=== PATIENT | male | born 1975 | race Caucasian/White ===

== ENCOUNTER 2016-06-18 18:54 | Inpatient (IN) | payer MEDICARE, OTHER ==
[~2016-06-18] VITALS: Ht 157.5 cm; Wt 63.5 kg
[2016-06-18] MEDS ORDERED: ONDANSETRON 4 MG INJ IV STA (19:09)
[2016-06-18] MEDS ORDERED: SOD CHLORIDE 0.9% 1,000 ML IV STA (19:09)
[2016-06-18] MEDS ORDERED: HYDROmorphONE 1 MG/ML SYG IV STA ×2 (19:09→21:36)
[2016-06-18] MEDS ORDERED: ADAL10SY SQ (19:16)
[2016-06-18] MEDS ORDERED: LORAZEPAM 2 MG INJ ONE (19:17)
[2016-06-18] MEDS ORDERED: LORAZEPAM 2 MG INJ IM STA (19:27)
[2016-06-18] MEDS ORDERED: PHENYTOIN 1,250 MG in SOD CHLORIDE 0.9% 150 ML IV ONE (19:30)
[2016-06-18 20:02] LABS: ADD SCAN DIFF NO
[2016-06-18 20:06] LABS: ABNORMAL IP MESSAGE 1; HEMATOCRIT 44.1 % (42.0-52.0); HEMOGLOBIN 13.7 g/dl (14.0-18.0); MEAN CORPUSCULAR HEMOGLOBIN 27.5 pg (29.0-33.0); MEAN CORPUSCULAR HGB CONC 31.1 g/dl (32.0-37.0); MEAN CORPUSCULAR VOLUME 88.4 fl (82.0-101.0); MEAN PLATELET VOLUME 10.4 fl (7.4-10.4); PLATELET COUNT 314 10^3/UL (140-415); RED BLOOD COUNT 4.99 10^6/ul (4.70-6.10); RED CELL DISTRIBUTION WIDTH 15.9 % (11.5-14.5); WHITE BLOOD COUNT 32.3 10^3/ul (4.8-10.8)
[2016-06-18 20:14] LABS: ALBUMIN 4.3 g/dl (3.3-4.9); POTASSIUM 3.4 mmol/L (3.5-5.1)
[2016-06-18 20:16] LABS: CREATININE 1.12 mg/dl (0.61-1.24)
[2016-06-18 20:17] LABS: ALBUMIN/GLOBULIN RATIO 1.38; BILIRUBIN,INDIRECT 0.5 mg/dl (0-1.1); BILIRUBIN,TOTAL 0.5 mg/dl (0.2-1.3); CALCIUM 9.3 mg/dl (8.4-10.2); TOTAL PROTEIN 7.4 g/dl (6.1-8.1)
--- NOTE | 2016-06-18 20:31 | RADRPT ---
PROCEDURE: XR Chest. CLINICAL INDICATION: Shortness of breath. Seizure. TECHNIQUE: Single frontal view. COMPARISON: None. FINDINGS: The lungs are clear. The heart size is normal. There is no pleural effusion. There is no pneumothorax. IMPRESSION: 1. Normal chest radiograph. RPTAT: QQ .Perry Bolaños MD, MD Date Time Electronically viewed and signed by .Perry Bolaños MD, on 06/18/2016 20:30 .R/
[2016-06-18 20:41] LABS: LYMPHOCYTES # 6.5 10^3/ul (0.8-2.9); NEUTROPHIL # 24.9 10^3/ul (1.6-7.5)
[2016-06-18] MEDS ORDERED: PIPER-TAZO 3.375 GM IV (PMX) 100 ML IVPB STA (20:41)
[2016-06-18] MEDS ORDERED: SODIUM CHLORIDE 0.9% 1L BAG IV* STA (20:41)
[2016-06-18 20:43] LABS: PLATELET ESTIMATE PLT APPEAR ADEQUATE
[2016-06-18] MEDS ORDERED: ADAL40PE SQ (20:48)
--- NOTE | 2016-06-18 20:48 | RADRPT ---
PROCEDURE: CT Head without. CLINICAL INDICATION: Seizure. TECHNIQUE: The study was performed utilizing a multi-slice, multidetector CT scanner. Direct spira l 1 mm axial sections were obtained through the head without the use of intravenous contrast materia l. 1 or more of the following dose reduction techniques were utilized: Automated exposure control, adjustment of the mA and/or kV according to patient's size, iterative reconstruction technique. Co collin and sagittal reformations were obtained. The images were reviewed on a PACS workstation. RADIATION DOSE: CTDIvol: 43.8 mGyDLP: 720.2 mGy-cm COMPARISON: No prior studies are available for comparison. FINDINGS: There is no intracranial hemorrhage, extra-axial fluid collection, mass lesion, midline shift or hyd rocephalus. The ventricles, sulci and cisterns are within normal limits. The white matter is unrem arkable. The hickey-white matter differentiation is preserved. The basal cisterns are patent. There is a probable prominent perivascular space in the left sub insular white matter. The midline struc tures are intact. The orbits, calvarium and extracranial soft tissues are normal in appearance. The visualized paranasal sinuses, mastoid air cells and middle ear cavities are normally aerated. IMPRESSION: 1. No acute intracranial abnormality. No intracranial hemorrhage, extra-axial fluid collection, ma ss lesion or hydrocephalous. RPTAT: HGAS .Jamar Burleson MD, MD Date Time Electronically viewed and signed by .Jamar Burleson MD, MD on 06/18/2016 20:48 .S/
--- NOTE | 2016-06-18 20:55 | RADRPT ---
PROCEDURE: CT Abdomen and Pelvis without contrast. CLINICAL INDICATION: Abdominal and pelvic pain. History of Crohn disease. TECHNIQUE: CT scan of the abdomen and pelvis without contrast was performed. Coronal and sagittal reformatted images were obtained from the axial source images. Images were reviewed on a high-resolu [employer] PACS workstation. Total exam DLP is 672.47 mGy-cm. CTDIvol is 12.34 mGy. One or more of the f ollowing dose reduction techniques were used: Automated exposure control, adjustment of the mA and/o r kV according to patient size, use of iterative reconstruction technique. COMPARISON: None. FINDINGS: There is mild atelectasis at both lung bases posteriorly. The lung bases are otherwise normal. The re is no pleural effusion or pericardial effusion. The heart size is normal. The liver is normal in size and attenuation. There is no focal hepatic lesion. The gallbladder and bile ducts are normal. The spleen is normal in size. There is no focal splenic lesion. Both adrenals are normal with no enlargement or mass. The pancreas is unremarkable with no mass or evidence of pancreatitis. There is no renal hydronephrosis or calculus. There is a low attenuation mass in the mid left kidne y posteriorly measuring 3.8 cm with Hounsfield units measuring 29 indicating it may be cystic or nitin id. A benign 1.5 cm cyst is present superiorly in the left kidney. There is no other renal mass. The abdominal aorta is not dilated. There is calcification in the aorta consistent with atheroscler osis. There is no retroperitoneal lymphadenopathy or mass. There is no pelvic lymphadenopathy or mass. The bladder and distal ureters are normal. The pelvis is partially obscured due to artifact related to the bilateral hip arthroplasties. There has been prior right hemicolectomy. There is thickening of the wall of the transverse colon d istally at the region of the anastomoses. The bowel and mesentery are otherwise normal. There is no free fluid or free gas. There are bilateral total hip arthroplasties. There is a plate and screws in the right iliac wing i nferiorly. The osseous structures are otherwise grossly normal. IMPRESSION: 1. Mild atelectasis at the lung bases posteriorly. 2. Low attenuation mass in the mid left kidney which is probably a cyst measuring 3.8 cm. However, correlation with ultrasound is advised. 3. Small cyst superiorly in the left kidney measuring 1.5 cm. 4. Prior right hemicolectomy. Thickening of the wall of the transverse colon at the site of the an astomosis. This may indicate recurrent Crohn disease. 5. Bilateral total hip arthroplasties. 6. Otherwise unremarkable study. RPTAT: QQ .Perry Bolaños MD, Date Time Electronically viewed and signed by .Perry Bolaños MD, on 06/18/2016 20:55 .R/
[2016-06-18] MEDS ORDERED: DIPHENHYDRAMINE 50 MG INJ IV ONE (21:00)
[2016-06-18] MEDS ORDERED: DEXTROSE IV ONE (21:39)
[2016-06-18] MEDS ORDERED: POTASSIUM CHLORIDE IV ONE (21:39)
[2016-06-18 22:00] VITALS: TEMP 97.8
[2016-06-18] MEDS ORDERED: ONDANSETRON 4 MG INJ IV PRN (22:00)
[2016-06-18] MEDS: HYDROmorphONE 1 MG/ML SYG IV PRN (22:49)
--- NOTE | 2016-06-18 23:11 | ERA ---
ER Documentation Chief Complaint Date/Time DATE: 06/18/16 TIME: 22:55 Chief Complaint back pain associated w/ chron's ds flare-up HPI 40-year-old male with a history of Crohn's disease on Humira and chronic steroids brought in by ambulance after having what looked like a seizure at home. Currently the patient is able to give his own history and is back to his baseline mental status. He states that today he was feeling some low back pain which then radiated into his abdomen. After that he does not remember what happened. Reportedly, per his mother, he became stiff and dropped to the floor and started having seizure-like activity. There is no urinary incontinence or tongue biting. He denies any recent fevers, chills, nausea, vomiting, diarrhea , hematochezia, or melena. He denies any drug use. He denies any neck pain or neck stiffness or any headaches. However he states his low back hurts and he usually does not have low back pain. He describes as a sharp, stabbing pain in his whole lower back, worse with movement, 10 out of 10. Better when he does not move. He also has lower abdominal pain that is cramping, constant, 10 out of 10. No dysuria, vomiting, hematemesis. ROS All systems reviewed and are negative except as per history of present illness. Medications Home Meds Reported Medications Adalimumab (Humira) 40 Mg/0.8 Ml Pen.ij.kit, 40 MG SQ [id number] 06/18/16 Discontinued Reported Medications Adalimumab (Humira) Unknown Strength Syringekit, MG SQ [id number], KIT 06/18/16 Allergies Allergies: Coded Allergies: acetaminophen (Verified Allergy, Unknown, rash, 06/18/16) hydrocodone (Verified Allergy, Unknown, rash, 06/18/16) morphine (Verified Allergy, Unknown, rash, 06/18/16) PMhx/Soc History of Surgery: Yes (Partial colectomy, bilateral hip arthroplasties, bilateral knee arthroplasty) Hx Miscellaneous Medical Probl: Yes (Crohn's disease) Hx Alcohol Use: No Hx Substance Use: No Smoking Status: Current every day smoker (10 cigarettes a day) FmHx Family History: No diabetes Physical Exam Vitals Vital Signs Date Time Temp Pulse Resp B/P Pulse Ox O2 Delivery O2 Flow Rate FiO2 06/18/16 19:00 Nasal Cannula 2 06/18/16 19:00 98.1 92 28 142/102 98 Room Air 06/18/16 18:57 98.1 95 20 141/100 99 Physical Exam Const: Ill-appearing, no significant distress when laying still and not moving Head: Atraumatic Eyes: Normal Conjunctiva. PERRLA, EOMI ENT: Dry mucous membranes Neck: Full range of motion. No lymphadenopathy. No meningismus. Resp: Clear to auscultation bilaterally Cardio: Regular rate and rhythm, no murmurs Abd: Soft, diffusely tender without rebound or guarding, non distended. Normal bowel sounds Skin: No petechiae or rashes Back: Lower thoracic and lumbar midline and paraspinal muscle tenderness to light palpation Ext: No cyanosis, or edema. 2+ distal pulses. Neur: Awake and alert and oriented 3, cranial nerves intact, strength and sensations intact in all 4 extremities, unable to test gait secondary to severe back pain Psych: Depressed mood and flat affect Result Diagram: 06/18/16192606/18/161926 Results 24 hrs Laboratory Tests Test 06/18/16 19:27 06/18/16 21:13 White Blood Count 32.310^3/ul Red Blood Count 4.9910^6/ul Hemoglobin 13.7g/dl Hematocrit 44.1% Mean Corpuscular Volume 88.4fl Mean Corpuscular Hemoglobin 27.5pg Mean Corpuscular Hemoglobin Concent 31.1g/dl Red Cell Distribution Width 15.9% Platelet Count 69119^3/UL Mean Platelet Volume 10.4fl Neutrophils % 77.0% Lymphocytes % 20.0% Monocytes % 3.0% Neutrophils # 24.910^3/ul Lymphocytes # 6.510^3/ul Monocytes # 1.010^3/ul Platelet Estimate PLT APPEAR ADEQUATE Macrocytosis OCCASIONAL Erythrocyte Sedimentation Rate 4mm/Hr Sodium Level 142mmol/L Potassium Level 3.4mmol/L Chloride Level 106mmol/L Carbon Dioxide Level 15mmol/L Anion Gap 24 Blood Urea Nitrogen 7mg/dl Creatinine 1.12mg/dl Glucose Level 87mg/dl Calcium Level 9.3mg/dl Total Bilirubin 0.5mg/dl Direct Bilirubin 0.00mg/dl Indirect Bilirubin 0.5mg/dl Aspartate Amino Transf (AST/SGOT) 41IU/L Alanine Aminotransferase (ALT/SGPT) 40IU/L Alkaline Phosphatase 81IU/L Troponin I < 0.012ng/ml Total Protein 7.4g/dl Albumin 4.3g/dl Globulin 3.10g/dl Albumin/Globulin Ratio 1.38 Lipase 51U/L Lactic Acid Level 2.2mmol/L Creatine Kinase 154IU/L Current Medications Medications (Trade) Dose Ordered Sig/Preston Route PRN Reason Start Time Stop Time Status Last Admin Dose Admin Sodium Chloride (NS) 1,000 ml @ 1,000 mls/hr Q1H STAT IV 06/18/16 19:09 06/18/16 20:08 DC 06/18/16 19:53 Hydromorphone HCl (Dilaudid) 1 mg ONCE STAT IV 06/18/16 19:09 06/18/16 19:11 DC 06/18/16 19:52 Ondansetron HCl (Zofran Inj) 4 mg ONCE STAT IV 06/18/16 19:09 06/18/16 19:11 DC 06/18/16 19:51 Lorazepam 2 mg 2 mg STK-MED ONCE .ROUTE 06/18/16 19:17 06/18/16 19:18 DC Phenytoin/Sodium Chloride (Dilantin/NS) 175 ml @ 175 mls/hr ONCE ONCE IV 06/18/16 19:30 06/18/16 20:29 DC 06/18/16 21:12 Lorazepam (Ativan) 2 mg ONCE STAT IM 06/18/16 19:27 06/18/16 19:29 DC 06/18/16 19:51 Sodium Chloride 1110 ml 1,110 ml BOLUS OVER 2 HOURS STAT IV* 06/18/16 20:41 06/18/16 20:46 DC 06/18/16 22:00 Piperacillin Sod/ Tazobactam Sod (Zosyn 3.375gm/ 100 ml (Pmx)) 100 ml @ 200 mls/hr ONCE STAT IVPB 06/18/16 20:41 06/18/16 21:10 DC 06/18/16 22:27 Diphenhydramine HCl (Benadryl) 25 mg ONCE ONCE IV 06/18/16 21:00 06/18/16 21:01 DC 06/18/16 21:12 Hydromorphone HCl 1 mg 1 mg ONCE STAT IV 06/18/16 21:36 06/18/16 21:37 DC 06/18/16 21:39 Potassium Chloride/Dextrose (D5W + KCl 40 Meq) 1,000 ml @ 250 mls/hr Q4H ONCE IV 06/18/16 21:39 06/19/16 01:38 Ondansetron HCl (Zofran Inj) 4 mg ER BRIDGE PRN IV NAUSEA AND/OR VOMITING 06/18/16 22:00 06/19/16 21:59 Hydromorphone HCl (Dilaudid) 1 mg Q2 PRN IV PAIN LEVEL 7-10 06/18/16 22:00 06/18/16 22:49 Procedures/MDM EMERGENT LABS AND DIAGNOSTIC STUDIES: Lab Results above were reviewed and interpreted by me. CBC shows leukocytosis CMP shows borderline hypokalemia, low CO2 and an elevated anion gap Lactate is 2.2 CK is within normal limits Troponins within normal limits Urinalysis ordered but not collected 12-lead EKG was interpreted by Joon Owens MD: Sinus tachycardia with ventricular rate of 106 beats per minute Normal axis Normal intervals No acute ST or T wave changes suggestive of acute ischemia or STEMI. Radiology Results as interpreted by Radiology below were reviewed by Kevin Owens MD: Chest x-ray: No acute abnormality CT brain: No abnormalities CT abdomen and pelvis: IMPRESSION: 1. Mild atelectasis at the lung bases posteriorly. 2. Low attenuation mass in the mid left kidney which is probably a cyst measuring 3.8 cm. However, correlation with ultrasound is advised. 3. Small cyst superiorly in the left kidney measuring 1.5 cm. 4. Prior right hemicolectomy. Thickening of the wall of the transverse colon at the site of the anastomosis. This may indicate recurrent Crohn disease. 5. Bilateral total hip arthroplasties. 6. Otherwise unremarkable study. RPTAT: QQ .Perry Bolaños MD, MD Date Time Electronically viewed and signed by .Perry Bolaños MD, MD on 06/18/2016 20:55 Initial Nursing notes reviewed. Previous Medical Records requested via the Electronic Health Record. EMERGENCY DEPARTMENT COURSE / MEDICAL DECISION MAKING: Patient is presenting with new onset seizures and severe low back and abdominal pain. His pain is likely secondary to his Crohn's exacerbation, however he has never had back pain like this before. I am concerned that after the fall, he might have had some trauma to his back. He is neurologically intact. I do not suspect aortic dissection. There is no evidence of retroperitoneal hemorrhage. CT does show evidence of possible Crohn's exacerbation, however his ESR is within normal limits. He has an elevated anion gap with increased lactate, however I do not believe this is secondary to sepsis, and is most likely secondary to his seizures. Despite this, given his leukocytosis and immunosuppression, blood cultures were sent and IV broad-spectrum antibiotics were given. Patient actually had a seizure while in the ED, with some hypoxia and perioral cyanosis. This lasted for about 30 seconds. He was treated with Ativan 2 mg IV. His labs were collected after this seizure episode. He was loaded with IV Dilantin. CT head did not show any acute intracranial abnormalities. 30 cc/kg of IV fluids was given. His labs were notable for mild hypokalemia. I have a low suspicion for meningitis or encephalitis at this time. The etiology of the new onset seizures is unknown. However he will need further inpatient workup. Dilaudid was given in multiple doses for his back pain and abdominal pain with some relief. CT of the thoracic lumbar spine were ordered to evaluate for possible spinal injury related to his seizure and are pending. I have a low suspicion for spinal abscess, however I cannot rule this out as the patient is immunosuppressed. I will defer any further workup to the inpatient team. I was told that the patient had [employer] insurance. I spoke with [facility] and they accepted the patient for transfer. However I later spoke with the patient he stated that he had canceled his insurance with [employer] and the last day was yesterday. He now has many many. So the patient was admitted to the hospitalist. Critical Care Time: 30 minutes Treatments/Evaluations: Close monitoring and treatment of unstable vital signs, cardiorespiratory, and neurologic status, while maintaining tight balance of fluid, respiratory, and cardiac interventions. This time includes discussing the case with the patient and the patients family. This time does not include all procedures stated elsewhere in this record. This time also includes reviewing old records, labs and radiological studies. This time includes examining and re-examining the patient. Additionally, this time also includes arranging care with admitting and consulting physicians. Accepting Care Team: Current data and ongoing care discussed. Time: Time of admission Primary Provider: Shawn Consulting: none Outstanding Data: none Departure Diagnosis: Primary Impression: New onset seizure Additional Impressions: Low back pain Qualified Code: M54.5 - Acute bilateral low back pain without sciatica Exacerbation of Crohn's disease Qualified Code: K50.90 - Exacerbation of Crohn's disease, without complications Condition: Serious ALEXSANDER OWENS MD Jun 18, 2016 23:07
[2016-06-18 23:17] LABS: ADD UMIC YES; URINE BILIRUBIN (Dip) NEGATIVE (NEGATIVE); URINE BLOOD (Dip) 3+ (NEGATIVE); URINE COLOR LT. YELLOW (YELLOW); URINE GLUCOSE (Dip) NEGATIVE (NEGATIVE); URINE KETONES (Dip) NEGATIVE (NEGATIVE); URINE LEUKOCYTE ESTERASE (Dip) NEGATIVE (NEGATIVE); URINE NITRITE (Dip) NEGATIVE (NEGATIVE); URINE TOTAL PROTEIN (Dip) NEGATIVE (NEGATIVE); URINE UROBILINOGEN (Dip) 0.2 E.U./dL (0.1-1.0)
[2016-06-18 23:32] LABS: BACTERIA,URINE FEW; SQUAMOUS EPITHELIAL CELL,UR FEW
[2016-06-18 23:45] LABS: BARBITURATES Negative (NEGATIVE); BENZODIAZEPINES Negative (NEGATIVE); CANNABINOIDS Negative (NEGATIVE); COCAINE Positive (NEGATIVE); OPIATES Positive (NEGATIVE)
--- NOTE | 2016-06-18 23:46 | RADRPT ---
PROCEDURE: CT thoracic spine without contrast. CLINICAL INDICATION: Trauma, severe back pain. TECHNIQUE: A CT of the thoracic spine was performed without intravenous contrast. Coronal and sag ittal reformats were generated. CTDIvol: 24.77 mGy. DLP: 1157.55 mGy-cm. One or more of the following dose reduction techniques were used: - Automated exposure control. - Adjustment of the mA and/or kV according to patient size. - Use of iterative reconstruction technique. COMPARISON: None. FINDINGS: There is a normal thoracic kyphosis. No spondylolisthesis is seen. There is a very mild acute appearing T2 compression fracture . A very mild acute appearing T3 burst fracture is noted, with subtle irregularity of the posterior T2 vertebral body but no significant r etropulsion. There is also a very mild acute appearing T12 burst fracture, with subtle irregularity the posterior T12 vertebral body but no significant retropulsion. There is no significant degenerative change. There are mild dependent atelectatic changes in the lungs. IMPRESSION: 1. Very mild acute appearing T2 compression fracture. 2. Very mild acute appearing T3 and T12 burst fractures, with subtle irregularity of the posterior vertebral bodies at these levels but no significant retropulsion. RPTAT: HTAR .Herve Driver MD, Date Time Electronically viewed and signed by .Herve Driver MD, on 06/18/2016 23:46 .R/
--- NOTE | 2016-06-18 23:52 | RADRPT ---
PROCEDURE: CT lumbar spine without contrast CLINICAL INDICATION: Back pain. TECHNIQUE: A CT scan of the lumbar spine was performed without intravenous contrast. Coronal and s agittal reformatted images were generated. CTDIvol: 23.25 mGy. DLP: 771.89 mGy-cm. One or more of the following dose reduction techniques were used: - Automated exposure control. - Adjustment of the mA and/or kV according to patient size. - Use of iterative reconstruction technique. COMPARISON: None. FINDINGS: The lumbar lordosis is preserved without spondylolisthesis. There is transitional anatomy of the lum bosacral junction with right hemisacralization of L5. Bone mineralization is normal and there is no suspicious osseous lesion. The vertebral body heights are maintained. No fracture or subluxation i s identified. There is a moderate Schmorl's node along the superior L1 endplate. There is mild spinal canal stenosis at L2-L3 and L3-L4 due to minimal disk bulging. At L4-L5, disk b ulging leads to moderate spinal canal stenosis and narrowing of the left lateral recess, with possib le mass effect on the traversing left L5 nerve root. There is moderate neural foraminal narrowing at L4-L5 due to a small foraminal disk protrusion. Mil d bilateral neural foraminal narrowing is noted at L5-S1 due to endplate osteophytosis. The patient is status post right hip arthroplasty. There are minimal arterial calcifications. IMPRESSION: 1. No lumbar spine fracture or subluxation. 2. Transitional anatomy of the lumbosacral junction with right hemisacralization of L5. 3. Mild spinal canal stenosis L2-L3 and L3-L4. At L4-L5, there is moderate spinal canal stenosis a nd narrowing of the left lateral recess, with possible mass effect on the traversing left L5 nerve r oot. 4. Right hip arthroplasty. RPTAT: HTAR .Herve Driver MD, Date Time Electronically viewed and signed by .Herve Driver MD, on 06/18/2016 23:52 .R/
[2016-06-19] VITALS (12 sets, daily range): BP systolic 119–125; BP diastolic 72–89; PULSE 83–109; RESP 17–19; Ht 157.5 cm; Wt 63.5 kg
[2016-06-19] MEDS ORDERED: POTASSIUM CHLORIDE 20 MEQ in SOD CHLORIDE 0.9% 100 ML IVPB ONE (01:30)
[2016-06-19] MEDS ORDERED: ONDANSETRON 4 MG INJ IV PRN (01:30)
[2016-06-19] MEDS: DEXTROSE 5%-0.45% NACL 1,000 ML IV SCH ×3 (02:01→21:30)
[2016-06-19] MEDS: DIPHENHYDRAMINE 50 MG INJ IV PRN ×4 (02:01→20:44)
[2016-06-19] MEDS: HYDROmorphONE 1 MG/ML SYG IV PRN ×8 (02:02→20:44)
[2016-06-19] MEDS ORDERED: VANCOMYCIN IV PER PHARMACY XX SCH (07:30)
[2016-06-19] MEDS: CEFEPIME 1GM/50 ML (PMX) 50 ML IVPB SCH ×2 (08:45→20:43)
[2016-06-19] MEDS ORDERED: METHYLPREDNISOLONE 125 MG INJ IV ONE (09:00)
[2016-06-19] MEDS ORDERED: METHYLPREDNISOLONE 125 MG INJ IV SCH (09:00)
[2016-06-19] MEDS ORDERED: VANCOMYCIN 1.25 GM in SOD CHLORIDE 0.9% 250 ML IVPB SCH (09:00)
--- NOTE | 2016-06-19 10:04 | HP ---
DATE OF ADMISSION: 06/18/2016 CHIEF COMPLAINT: Seizure. HISTORY OF PRESENT ILLNESS: The patient is a 40-year-old male with a history of Crohn's disease and left partial hemicolectomy who presented to the emergency department after he had new onset seizure -like activity. The patient stated that he had sudden onset of abdominal pain and back pain and the next thing he knows he was surrounded by family and EMS. Reportedly, the patient had generalized b toshia tremor consistent with what appears to be seizure. When he was presented to the ER, reportedly he also had 1 episode of seizure. The patient stated that he has had back pain occasionally but nev er like the kind of pain that he felt yesterday. In the ER, he was found to have a WBC of 32,000. His bicarbonate is 15. CT of the head was negativ e. CT abdomen and pelvis shows thickening of the transverse colon, likely secondary to his Crohn's. Lumbar CT shows moderate spinal stenosis. Thoracic CT shows acute appearing T2 fracture and burst fracture in T3 and T12. The patient was given Ativan and Dilantin while here in the ER. REVIEW OF SYSTEMS: A 12-point review was performed and negative except what is mentioned in HPI. PAST MEDICAL HISTORY: As per HPI. PAST SURGICAL HISTORY: As per HPI. ALLERGIES: 1. TYLENOL. 2. HYDROCODONE. 3. MORPHINE. HOME MEDICATIONS: Humira. PHYSICAL EXAMINATION: VITAL SIGNS: Blood pressure 131/100, heart rate 104, respiratory rate 22, temperature 97.8, oxygen saturation 97% on 2 liters. GENERAL: The patient lying in bed in no acute distress. He is answering questions appropriately. HEENT: No obvious head deformity. Pupils reactive to light. Extraocular muscles intact. CARDIOVASCULAR: Tachycardic with regular rhythm. LUNGS: Clear anteriorly. ABDOMEN: Soft. There is minimal discomfort to deep palpation diffusely. There is sweating noted d uring abdominal examination. There are positive bowel sounds. EXTREMITIES: No edema. BACK: Exam elicited some pain, mainly in the lumbar area, while the patient was lying on his side. LABORATORY DATA: WBC 32, hemoglobin 13.7. Potassium 3.4, bicarbonate 15, anion gap 24. Otherwise, CBC and CMP within acceptable range. IMAGING: Brain CT, abdominal CT, lumbar and thoracic spine CT with results as mentioned in the HPI. Chest x-ray shows clear lungs with no effusion, no pneumothorax. IMPRESSION: 1. New onset seizure. 2. Acute on chronic back pain. 3. History of Crohn's disease. 4. Anion gap metabolic acidosis. 5. Systemic inflammatory response syndrome, as evidenced by leukocytosis and tachycardia, likely se condary to inflammatory reaction. PLAN: He will be started on Keppra, and Ativan will be provided as needed for seizure. We will prabha ce a neurology consult. Head CT, as mentioned in HPI, was negative. We will obtain MRI of the brai n for further evaluation. He will be provided pain medication as needed for his back pain. He will have physical therapy prior to discharge. Given presentation of SIRS, he will be placed on antibio tic, and we will follow up culture results including stool studies. We will consider infectious dis ease consult. He will be continued with this medication for Crohn's. Actually, his leukocytosis co uld be a manifestation of his Crohn's treatment which also includes steroid. Further workup and management per clinical course. Dictated By: TRACI MENSAH/GEOFF Conf#: [id number] DID#: [id number]
[2016-06-19 10:42] LABS: ADD SCAN DIFF NO
[2016-06-19 10:46] LABS: BASOPHILS % 0.2 % (0.0-2.0); EOSINOPHILS # 0.1 10^3/ul (0.0-0.5); EOSINOPHILS % 0.6 % (0.0-7.0); HEMATOCRIT 42.9 % (42.0-52.0); HEMOGLOBIN 13.8 g/dl (14.0-18.0); LYMPHOCYTES % 5.6 % (15.0-51.0); MEAN CORPUSCULAR HEMOGLOBIN 27.3 pg (29.0-33.0); MEAN CORPUSCULAR HGB CONC 32.2 g/dl (32.0-37.0); MEAN CORPUSCULAR VOLUME 84.8 fl (82.0-101.0); MEAN PLATELET VOLUME 9.9 fl (7.4-10.4); MONOCYTE # 0.4 10^3/ul (0.3-0.9); MONOCYTES % 2.3 % (0.0-11.0); NEUTROPHIL # 16.4 10^3/ul (1.6-7.5); NEUTROPHILS % 90.7 % (39.0-77.0); PLATELET COUNT 277 10^3/UL (140-415); RED BLOOD COUNT 5.06 10^6/ul (4.70-6.10); RED CELL DISTRIBUTION WIDTH 16.2 % (11.5-14.5); WHITE BLOOD COUNT 18.1 10^3/ul (4.8-10.8)
[2016-06-19 11:04] LABS: ALBUMIN 3.9 g/dl (3.3-4.9); POTASSIUM 3.1 mmol/L (3.5-5.1)
[2016-06-19 11:06] LABS: CREATININE 0.79 mg/dl (0.61-1.24)
[2016-06-19 11:07] LABS: ALBUMIN/GLOBULIN RATIO 1.25; CALCIUM 7.8 mg/dl (8.4-10.2)
[2016-06-19] MEDS: LEVETIRACETAM 500 MG TAB PO SCH ×2 (11:16→20:44)
[2016-06-19] MEDS: [UNRECOGNIZED DRUG - REMARK] XX SCH ×2 (12:00→20:00)
[2016-06-19] MEDS ORDERED: HYDROmorphONE 1 MG/ML SYG IV PRN (14:00)
[2016-06-19] MEDS: FAMOTIDINE 20 MG INJ IV SCH (14:25)
--- NOTE | 2016-06-19 15:27 | PN ---
DATE: 06/19/2016 SUBJECTIVE: No acute events overnight. The patient presently speaking to neurology team. OBJECTIVE: VITAL SIGNS: T-max 99.1, pulse 97 to 108, respirations 18, blood pressure is 125/87, saturating 97% on room air. PHYSICAL EXAMINATION: GENERAL: The patient is lying in bed, no acute distress. HEENT: Pupils equal, round, reactive to light. Extraocular muscles intact. NECK: Supple, no thyromegaly. LUNGS: Clear to auscultation bilaterally. CARDIOVASCULAR: S1, S2 heard. No rubs or gallops. ABDOMEN: Mild tenderness to palpation on deep palpation, but no rebound or guarding. Normal bowel sounds. MUSCULOSKELETAL: No lower extremity edema bilaterally. NEUROLOGIC: No focal deficits. LABORATORY DATA: WBC 18, hemoglobin 13.8, hematocrit 42.9, platelets of 277. Sodium 138, potassium 3.0, chloride 107, CO2 23, BUN of 11, creatinine 0.79, glucose 132. LFTs are normal. Drug screen shows positive opiates and positive cocaine. UA shows 3+ hemoglobin, negative nitrites, negative le ukocyte esterase. Head CT showed no acute intracranial abnormalities. Again, CT abdomen and pelvis results did show mild atelectasis at lung bases posteriorly, low attenu ation mass in the mid left kidney and probably a cyst measuring 2.5 cm, however, correlation with [facility] was advised. Small cyst superiorly in the left kidney measuring 1.5 cm. Prior right hemic olectomy, thickening of the wall of the transverse colon at the site of anastomosis may indicate rec urrent Crohn's disease, bilateral total hip arthroplasties, otherwise unremarkable. Again, his CT scan of the L-spine did show mild central canal stenosis L2-L3 and L3-L4 and L4-L5. T here is moderate spinal canal stenosis and narrowing of the left lateral recess with possible mass e ffect on the transverse left L5 nerve root. The T-spine CAT scan showed very mild acute appearing T2 compression fracture, very mild acute appea ring T3 and T12 burst fractures with subtle irregularity of the posterior vertebral bodies at these levels, but no significant retropulsion. ASSESSMENT AND PLAN: A 40-year-old male coming in with history of Crohn's disease, partial left migdalia colectomy and chronic low back pain who came in with new onset seizures. 1. No evidence of seizures. Again, continue Keppra, monitor for signs of seizure activity. Will g et an as well. MRI of the brain is pending as well. Follow up neurology recommendations. 2. History of Crohn's disease. Patient did come in with elevated white blood cell count as well. He is on Humira for that. White count has improved but is still elevated. Follow up culture result s. UA was negative. Continue to monitor for now. No signs of any fevers. If worsens, consider ID consult at that time. Continue Humira for Crohn's. 3. Systemic inflammatory response syndrome, again secondary to the tachycardia and leukocytosis. A gain, these are improving. Continue fluids, monitor labs in the morning. He is also on vancomycin and cefepime antibiotics. 4. Gastrointestinal prophylaxis. Add H2 lyla. 5. Deep venous thrombosis prophylaxis, sequential compression devices. Dictated By: GIRMA LAND/GEOFF Conf#: [id number] DID#: [id number] CC: TRACI SALMERON MD;*EndCC*
--- NOTE | 2016-06-19 15:51 | CONS ---
DATE OF ADMISSION: 06/18/2016 DATE OF CONSULTATION: 06/19/2016 TYPE OF CONSULTATION: Neurology. Thank you, Dr. Escobar, for your kind referral for evaluation of seizure. HISTORY OF PRESENT ILLNESS: The patient is a 40-year-old gentleman with a past medical history of Crohn disease who had a seizure at home. He has no history of seizures. He has history of Crohn's disease and a left partial hemicolectomy. He stated that he was in his room in bed feeding okay and was not complaining of any problems. That was the last thing he states he remembers. The next thing was already seeing police and firemen at home after the seizure. He states that his family heard the sound of a fall and he was found on the floor posterior and having seizure activity. After the event, he was somewhat confused. According to ER note, he had sudden onset of abdominal pain and then the next thing he remembered was being surrounded by family and the paramedics, though now to me he denies any pain prior to his seizure. Following the seizure, he was complaining of low back and thoracic spinal pain. He had a CAT scan of the head done which shows no acute abnormality. Chest x- ray, normal. Abdominal and pelvic CT shows status post right hemicolectomy with thickening of the wall of the transverse colon in the site of anastomosis, bilateral hip arthroplasties. Lumbar spinal CAT scan shows no fractures or subluxation, but mild spinal canal stenosis L2-L3, L3-L4. At the L4-5 level, there is a moderate spinal canal stenosis and narrowing of the left lateral recess, possible mass effect on the traversing left L5 root. Thoracic spine CAT scan shows very mild acute appearing T2 compression fracture, as well as T3 and T12 burst fractures with subtle irregularity of the posterior vertebral bodies at those levels, but no significant retropulsion. I forgot to mention that the patient stated that he had bilateral hip and knee replacements because of the damage from prednisone. HOME MEDICATIONS: 1. Humira. 2. Prednisone 20 mg daily. 3. Omeprazole. 4. He states that at home at times he uses Gunter for breakthrough pain. SOCIAL HISTORY: The patient denies alcohol or drug use. FAMILY HISTORY: Noncontributory. CURRENT MEDICATIONS: 1. Vancomycin. 2. Cefepime. 3. Pepcid. 4. Keppra 500 twice daily. 5. He received Solu-Medrol 60 mg once. 6. Ativan as needed for seizure. 7. Dilaudid 1 mg q.3 hours p.r.n. pain. He states that he is in a lot of pain with any movements his back and every 3 hours is not enough for him. ALLERGIES: 1. ACETAMINOPHEN. 2. HYDROCODONE. 3. MORPHINE. I did not ask details of his allergies, but he says that he is taking Gunter at home. REVIEW OF SYSTEMS: No numbness, weakness anywhere in the body. No problem urinating, having bowel movements. No headaches. PHYSICAL EXAMINATION VITAL SIGNS: Today temperature 98.5, pulse 99, respirations 19, blood pressure 125/87. GENERAL: He is not in acute distress, lying in bed. HEENT: Normocephalic, atraumatic head. NECK: No carotid bruits. No thyromegaly. LUNGS: Clear to auscultation bilaterally. CARDIAC: Normal cardiac rhythm and sounds. ABDOMEN: Soft, nontender. EXTREMITIES: No cyanosis, clubbing or edema. NEUROLOGIC: He is awake, alert, and oriented x3 with fluent speech. Cranial nerve examination shows intact visual carrera bilaterally. Pupils reactive from 3 to 2 mm bilaterally. Extraocular movements intact without nystagmus. Symmetrical face. Preserved facial strength and sensation. Tongue is in midline. Palate elevates symmetrically. Motor strength examination seems to be preserved in all extremities. He moves symmetrically at least 3/5. There is some amount of give way because of spinal pain. Preserved sensation in the extremities. Deep tendon reflexes 2+ throughout. Downgoing toes bilaterally. Coordination preserved on nylqio-sg-bvjels testing. No dysmetria or tremor. Gait was not assessed. He stated that he was ambulating to the bathroom earlier today. IMPRESSION: 1. New onset seizure. Etiology? We will obtain MRI of the brain as well as EEG. 2. Status post seizure related fall with fractured T2, T3, T12 vertebral bodies. For better evaluation, I will obtain MRI of the thoracic spine. 3. I think the patient needs to have his pain controlled. 4. I think he needs to be seen by a neurosurgeon even though he may not need any surgery, but I am not familiar with management of spinal fractures and if he needs any braces for example. Thank you very much for this interesting consultation. Dictated By: SOLANGE GONZALEZ/GEOFF Conf#: [id number] DID#: [id number] MTDD
[2016-06-19] MEDS: VANCOMYCIN 750 MG in SOD CHLORIDE 0.9% 150 ML IVPB SCH (17:40)
[2016-06-19] MEDS: LORAZEPAM 2 MG INJ IV PRN (22:15)
[2016-06-20] VITALS (12 sets, daily range): BP systolic 109–132; BP diastolic 75–88; PULSE 77–95; RESP 17–20
[2016-06-20] MEDS: VANCOMYCIN 750 MG in SOD CHLORIDE 0.9% 150 ML IVPB SCH ×3 (01:19→17:46)
[2016-06-20] MEDS: HYDROmorphONE 1 MG/ML SYG IV PRN ×6 (01:20→21:45)
[2016-06-20] MEDS: DIPHENHYDRAMINE 50 MG INJ IV PRN ×3 (03:00→18:31)
[2016-06-20] MEDS: [UNRECOGNIZED DRUG - REMARK] XX SCH ×3 (04:00→20:00)
[2016-06-20] MEDS: LORAZEPAM 2 MG INJ IV PRN ×5 (06:53→22:45)
[2016-06-20 08:25] LABS: ADD SCAN DIFF NO
[2016-06-20 08:36] LABS: BASOPHILS % 0.2 % (0.0-2.0); EOSINOPHILS # 0.2 10^3/ul (0.0-0.5); EOSINOPHILS % 1.1 % (0.0-7.0); HEMATOCRIT 35.2 % (42.0-52.0); HEMOGLOBIN 11.5 g/dl (14.0-18.0); LYMPHOCYTES # 3.3 10^3/ul (0.8-2.9); MEAN CORPUSCULAR HEMOGLOBIN 27.8 pg (29.0-33.0); MEAN CORPUSCULAR HGB CONC 32.7 g/dl (32.0-37.0); MEAN PLATELET VOLUME 9.9 fl (7.4-10.4); MONOCYTE # 0.8 10^3/ul (0.3-0.9); MONOCYTES % 5.7 % (0.0-11.0); NEUTROPHIL # 10.5 10^3/ul (1.6-7.5); NEUTROPHILS % 70.7 % (39.0-77.0); PLATELET COUNT 233 10^3/UL (140-415); RED BLOOD COUNT 4.14 10^6/ul (4.70-6.10); RED CELL DISTRIBUTION WIDTH 15.9 % (11.5-14.5); WHITE BLOOD COUNT 14.8 10^3/ul (4.8-10.8)
[2016-06-20 08:49] LABS: CREATININE 0.74 mg/dl (0.61-1.24)
[2016-06-20 08:50] LABS: CALCIUM 7.4 mg/dl (8.4-10.2)
[2016-06-20 08:52] LABS: POTASSIUM 2.9 mmol/L (3.5-5.1)
[2016-06-20] MEDS ORDERED: POTASSIUM CHLORIDE (SR) 20 MEQ TAB PO STA (09:07)
[2016-06-20] MEDS ORDERED: POTASSIUM CHLORIDE 250 ML IVPB ONE (10:00)
[2016-06-20] MEDS: CEFEPIME 1GM/50 ML (PMX) 50 ML IVPB SCH ×2 (10:47→21:06)
[2016-06-20] MEDS: predniSONE 20 MG TAB PO SCH (10:48)
[2016-06-20] MEDS: LEVETIRACETAM 500 MG TAB PO SCH ×2 (10:48→21:06)
[2016-06-20] MEDS: FAMOTIDINE 20 MG INJ IV SCH (10:48)
--- NOTE | 2016-06-20 17:01 | PN ---
DATE: 06/20/2016 TIME OF EVALUATION: 1530. SUBJECTIVE DATA: The patient is asking for pain medication around the clock. Denies any headache. No more seizure episodes reported. OBJECTIVE DATA: VITAL SIGNS: Temperature 97.8, pulse rate 96, respiratory rate 18, blood pressure 132/88, oxygen saturation 95% on room air. GENERAL: This is a well-built, well-nourished male patient lying in bed in no apparent distress. HEENT: Head normocephalic and atraumatic. Eyes: Anicteric sclerae. Conjunctivae clear. ENT: Nasal septum is midline. Oral mucosa is moist. NECK: Supple. No JVD noticed. RESPIRATORY: Bilaterally clear to auscultation. No adventitious breath sounds heard. No use of accessory muscles of respiration. CARDIAC: Regular rate and rhythm. No murmurs heard. ABDOMEN: Soft, nontender and nondistended. Bowel sounds positive in all 4 quadrants. GENITOURINARY: Deferred. EXTREMITIES: No cyanosis, no clubbing, no edema. Peripheral pulses palpable. NEUROLOGIC: The patient is awake, alert and oriented. Cranial nerves are grossly intact. No focal deficits. LABORATORY AND DIAGNOSTIC DATA: WBC 14.8, hemoglobin 11.5, hematocrit 35.2, platelet count 233. Sodium 130, potassium 2.9, chloride 100, carbon dioxide 26 , anion gap 12, BUN 8, creatinine 0.74, glucose 89 and calcium 7.4, magnesium 2.2. ASSESSMENT AND PLAN: 1. New onset seizure disorder. Continue on seizure precautions. Continue Keppra. Pending electroencephalography. Brain CT scan negative for any acute findings. Neurology following. 2. Status post seizure related fall with fractures of T2, T3 and T12. Continue pain control. MRI of the thoracic spine pending. 3. Hypokalemia. The patient's potassium will be repleted. 4. Crohn's disease. The patient will be continued on prednisone and Humira. 5. Systemic inflammatory response syndrome with leukocytosis and sinus tachycardia. The patient on empiric antibiotics, most probably noninfectious in nature. If cultures are negative, will discontinue the patient's antibiotics. 6. Fluid, electrolytes and nutrition. Continue the patient on a soft diet. 7. Deep venous thrombosis prophylaxis. Bilateral sequential compression devices. 8. Gastrointestinal prophylaxis. H2 receptor blockers. PLAN: Await MRI of the lumbar and thoracic spine. We will order physical therapy evaluation. The case was discussed with Dr. Robertson. JERAMY ROBERTSON MD, AM/GEOFF Conf#: [id number] DID#: [id number] MTDD
[2016-06-20] MEDS ORDERED: POTASSIUM CHLORIDE (SR) 10 MEQ TAB PO ONE (18:00)
--- NOTE | 2016-06-20 20:39 | SP ---
DATE OF PROCEDURE: 06/20/2016 INDICATION: A 40-year-old gentleman with status post seizure. He is currently on Keppra. DESCRIPTION OF PROCEDURE: Routine EEG was recorded digitally. Kmnce-oi-yvaek and pnqbt-ax-bom alex ages were recorded and reviewed. All impedances were measured and recorded. Cap electrodes were pl aced in accordance with International 10-20 system of electrode placement. FINDINGS: Low amplitude background activity was seen throughout the recording, frequency ranging be tween 10 to 12 cycles per second intermixes with even smaller amplitude, higher frequency beta range activity. No epileptiform transients were seen. No signs of ongoing electrographic seizures. No lateralized slowing was observed. No definite response to photic stimulation. Hyperventilation jayde cits no epileptiform activity. When patient gets drowsy, background rhythm gets slightly less organ ized. IMPRESSION: Essentially normal study. Please correlate clinically. Dictated By: SOLANGE FortuneV/GEOFF Conf#: [id number] DID#: [id number] CC: TRACI SALMERON MD;*EndCC*
[2016-06-21] MEDS: DIPHENHYDRAMINE 50 MG INJ IV PRN ×6 (00:35→22:21)
[2016-06-21] MEDS: VANCOMYCIN 750 MG in SOD CHLORIDE 0.9% 150 ML IVPB SCH ×2 (00:43→09:10)
[2016-06-21] MEDS: HYDROmorphONE 1 MG/ML SYG IV PRN ×6 (03:12→22:20)
[2016-06-21 03:28] VITALS: BP 131/93; RESP 18
[2016-06-21] MEDS: [UNRECOGNIZED DRUG - REMARK] XX SCH (03:31)
[2016-06-21] MEDS: LORAZEPAM 2 MG INJ IV PRN (04:22)
[2016-06-21 05:40] LABS: ADD SCAN DIFF NO
[2016-06-21 05:50] LABS: BASOPHILS % 0.2 % (0.0-2.0); EOSINOPHILS # 0.1 10^3/ul (0.0-0.5); EOSINOPHILS % 0.6 % (0.0-7.0); HEMATOCRIT 36.3 % (42.0-52.0); HEMOGLOBIN 11.6 g/dl (14.0-18.0); LYMPHOCYTES # 3.2 10^3/ul (0.8-2.9); LYMPHOCYTES % 24.1 % (15.0-51.0); MEAN CORPUSCULAR HEMOGLOBIN 27.6 pg (29.0-33.0); MEAN CORPUSCULAR VOLUME 86.2 fl (82.0-101.0); MEAN PLATELET VOLUME 10.7 fl (7.4-10.4); MONOCYTE # 0.8 10^3/ul (0.3-0.9); MONOCYTES % 5.8 % (0.0-11.0); NEUTROPHIL # 9.2 10^3/ul (1.6-7.5); NEUTROPHILS % 68.9 % (39.0-77.0); PLATELET COUNT 257 10^3/UL (140-415); RED BLOOD COUNT 4.21 10^6/ul (4.70-6.10); WHITE BLOOD COUNT 13.4 10^3/ul (4.8-10.8)
[2016-06-21 05:55] LABS: POTASSIUM 4.1 mmol/L (3.5-5.1)
[2016-06-21 05:58] LABS: CREATININE 0.87 mg/dl (0.61-1.24)
[2016-06-21 05:59] LABS: CALCIUM 8.2 mg/dl (8.4-10.2)
[2016-06-21] MEDS: LEVETIRACETAM 500 MG TAB PO SCH ×2 (09:09→22:19)
[2016-06-21] MEDS: predniSONE 20 MG TAB PO SCH (09:09)
[2016-06-21] MEDS: FAMOTIDINE 20 MG INJ IV SCH (09:09)
[2016-06-21] MEDS: CEFEPIME 1GM/50 ML (PMX) 50 ML IVPB SCH (10:26)
--- NOTE | 2016-06-21 13:55 | PN ---
Date/Time of Note Date/Time of Note DATE: 06/21/16 TIME: 13:53 Assessment/Plan VTE Prophylaxis VTE Prophylaxis Intervention: SCD's Lines/Catheters IV [facility] Urinary Cath still in place: No Assessment/Plan Chief Complaint/Hosp Course ASSESSMENT AND PLAN: 1. New onset seizure disorder. Continue on seizure precautions. Continue Keppra. Pending electroencephalography. Brain CT scan negative for any acute findings. Neurology following. 2. Status post seizure related fall with fractures of T2, T3 and T12. Continue pain control. MRI of the thoracic spine pending. 3. Hypokalemia. The patient's potassium will be repleted. 4. Chronic disease. The patient will be continued on prednisone and Humira. 5. Systemic inflammatory response syndrome with leukocytosis and sinus tachycardia. The patient on empiric antibiotics, most probably noninfectious in nature. If cultures are negative, will discontinue the patient's antibiotics. 6. Fluid, electrolytes and nutrition. Continue the patient on a soft diet. 7. Deep venous thrombosis prophylaxis. Bilateral sequential compression devices. 8. Gastrointestinal prophylaxis. H2 receptor blockers. PLAN: Await recurrent encephalopathy. Await MRI of the lumbar and thoracic spine. We will order physical therapy evaluation. Problems: Subjective 24 Hr Interval Summary Free Text/Dictation Patient continues to complain of having low back pain Has been requesting pain medication around the clock Has been very adamant regarding his Dilaudid and Benadryl Tolerating oral intake, denies any chest pain or shortness of breath Exam/Review of Systems Vital Signs Vitals Vital Signs Date Time Temp Pulse Resp B/P Pulse Ox O2 Delivery O2 Flow Rate FiO2 06/21/16 03:28 98.8 90 18 131/93 96 06/19/16 00:30 Nasal Cannula 2.0 Intake and Output 06/20/16 06/20/16 06/21/16 15:00 23:00 07:00 Intake Total 400 ml Balance 400 ml Exam General: The patient is well-developed, Not in acute distress. HEENT: Atraumatic, normocephalic. The pupils are equal and round . Neck: Supple with full range of motion. Chest: Normal expansion of the thorax during inspiration Lungs: Clear to auscultation bilaterally Heart: Normal S1-S2, Regular rhythm and rate. Abdomen: Soft , nontender, nondistended , bowel sounds are present. Extremities: Normal to inspection, no edema no cyanosis Neurologic: Normal mental status,The patient is awake, alert and oriented . Results Result Diagram: 06/21/16 0420 06/21/16 0420 Results 24 hrs Laboratory Tests Test 06/21/16 04:20 White Blood Count 13.4 H Red Blood Count 4.21 L Hemoglobin 11.6 L Hematocrit 36.3 L Mean Corpuscular Volume 86.2 Mean Corpuscular Hemoglobin 27.6 L Mean Corpuscular Hemoglobin Concent 32.0 Red Cell Distribution Width 16.0 H Platelet Count 257 Mean Platelet Volume 10.7 H Neutrophils % 68.9 Lymphocytes % 24.1 Monocytes % 5.8 Eosinophils % 0.6 Basophils % 0.2 Nucleated Red Blood Cells % 0.0 Neutrophils # 9.2 H Lymphocytes # 3.2 H Monocytes # 0.8 Eosinophils # 0.1 Basophils # 0.0 Nucleated Red Blood Cells # 0.0 Sodium Level 139 Potassium Level 4.1 Chloride Level 107 Carbon Dioxide Level 27 Anion Gap 9 Blood Urea Nitrogen 10 Creatinine 0.87 Glucose Level 89 Calcium Level 8.2 L Magnesium Level 2.0 Medications Medications Current Medications Ondansetron HCl (Zofran Inj) 4 mg Q6H PRN IV NAUSEA AND/OR VOMITING; Start 06/19 at 01:30 Miscellaneous Information 40 mg 40 mg [id number] ; Start 07/03/16 at 09:00 Cefepime HCl (Maxipime 1gm/50 ml (Pmx)) 50 ml @ 100 mls/hr Q12 IVPB Last administered on 06/21/16 10:26; Admin Dose 100 MLS/HR; Start 06/19/16 at 09:00 Lorazepam (Ativan) 2 mg Q1H PRN IV seizure Last administered on 06/21/16 04:22 ; Admin Dose 2 MG; Start 06/19/16 at 09:00 Levetiracetam 500 mg 500 mg BID PO Last administered on 06/21/16 09:09; Admin Dose 500 MG; Start 06/19/16 at 09:30 Vancomycin HCl/ Sodium Chloride (Vancocin/NS) 150 ml @ 75 mls/hr Q8H IVPB Last administered on 06/21/16 09:10; Admin Dose 75 MLS/HR; Start 06/19/16 at 17: 00 Famotidine (Pepcid Iv) 20 mg DAILY IV Last administered on 06/21/16 09:09; Admin Dose 20 MG; Start 06/19/16 at 13:30 Hydromorphone HCl (Dilaudid) 1 mg Q3H PRN IV PAIN LEVEL 7-10 Last administered on 06/21/16 09:08; Admin Dose 1 MG; Start 06/19/16 at 14:30 Prednisone (Prednisone) 20 mg DAILY PO Last administered on 06/21/16 09:09; Admin Dose 20 MG; Start 06/20/16 at 09:00 Diphenhydramine HCl (Benadryl) 25 mg Q4 PRN IV SLEEP Last administered on 10:26; Admin Dose 25 MG; Start 06/21/16 at 01:00 JAMIN SPEARS MD Jun 21, 2016 13:55
[2016-06-21 19:10] VITALS: BP 140/98; RESP 19
--- NOTE | 2016-06-21 23:47 | RADRPT ---
PROCEDURE: MR thoracic Spine. CLINICAL INDICATION: Pain , thoracic spine fractures TECHNIQUE: An MRI of the thoracic spine was performed utilizing the following sequences: Sagittal T1 weighted, axial proton density, sagittal and axial T2 weighted, and sagittal T2 inversion recove ry COMPARISON: CT 06/18/2016 FINDINGS: There is normal kyphosis of the thoracic spine. No vertebral body subluxation is seen. There are mu ltilevel compression deformities through the thoracic spine, seen at T1 through T4, T7-T10, T12, and L1. There is up to 30% height loss seen at T3. There is mild superior endplate edema seen at T2, T3, T6, T12, and L1, and inferior endplate edema at T6 and T7. There is minimal retropulsion of the upper T3 and T12 vertebral bodies. The thoracic cord appears normal in configuration and signal intensity. No abnormal cord lesion is identified. There is no significant disk protrusion or extrusion identified. There is no central canal or neura l foraminal stenosis visualized. There is no abnormal paravertebral soft tissue mass. There is a left renal cyst. IMPRESSION: 1. Multilevel compression deformities through the thoracic spine, seen at T1-T4, T7-T10, T12, and L 1, with up to 30% height loss. 2. Marrow edema involving the upper T2 vertebral body appears consistent with acute fracture involv ement. Minimal edema at T3, T6, T7, T12, and L1 may reflect subacute fracture involvement , and/or less likely modic endplate degenerative change. 3. Minimal retropulsion involving the upper T3 and T12 vertebral bodies, without central canal narr owing. RPTAT: HBST .Iftikhar Felix MD, Date Time Electronically viewed and signed by .Iftikhar Felix MD, on 06/21/2016 23:46 .T/
--- NOTE | 2016-06-21 23:51 | RADRPT ---
PROCEDURE: MR Brain without contrast. CLINICAL INDICATION: Altered mental status TECHNIQUE: An MRI of the brain was performed utilizing the following sequences: Axial T1, axial T 2, axial FLAIR, coronal gradient echo, sagittal T1 FLAIR, diffusion weighted imaging, and ADC map. COMPARISON: CT 06/18/2016 FINDINGS: The ventricles are symmetric and normal in size. There is no mass, mass effect, or midline shift. There is no abnormal intra-axial or extra-axial fluid collection. There is no intracranial hemorrh age. There is no evidence of acute infarct There are a few scattered T2 / FLAIR hyperintense foci in the periventricular and subcortical white matter of the bilateral cerebral hemispheres. There is a left basal ganglia prominent perivascular space. The sella and suprasellar cistern appear within normal limits. The brainstem and posterior fossa ar e normal in configuration. The orbital soft tissue contents are unremarkable. Paranasal sinuses are clear. IMPRESSION: 1. Scattered T2 / FLAIR hyperintense foci in the periventricular and subcortical white matter, likel y reflecting minimal small vessel ischemic change or migraine associated change. Minimal involvemen t with inflammatory or demyelinating process including vasculitis or multiple sclerosis is otherwise possible. 2. No abnormal mass, acute infarct, or intracranial bleed. RPTAT: HBST .Iftikhar Felix MD, MD Date Time Electronically viewed and signed by .Iftikhar Felix MD, on 06/21/2016 23:51 .T/
--- NOTE | 2016-06-21 23:54 | CONS ---
Date/Time of Note Date/Time of Note DATE: 06/21/16 TIME: 23:51 Consult Date/Type/Reason Admit Date/Time Jun 18, 2016 at 21:51 Initial Consult Date Type of Consultation: neurology Subjective no seizures. per nursing at times confused. Constantly asking for pain meds Objective Vital Signs Date Time Temp Pulse Resp B/P Pulse Ox O2 Delivery O2 Flow Rate FiO2 06/21/16 19:10 98.6 98 19 140/98 98 06/19/16 00:30 Nasal Cannula 2.0 Intake and Output 06/20/16 06/20/16 06/21/16 15:00 23:00 07:00 Intake Total 400 ml Balance 400 ml Results/Medications Result Diagram: 06/21/16 0420 06/21/16 0420 Results 24 hrs Laboratory Tests Test 06/21/16 04:20 White Blood Count 13.4 H Red Blood Count 4.21 L Hemoglobin 11.6 L Hematocrit 36.3 L Mean Corpuscular Volume 86.2 Mean Corpuscular Hemoglobin 27.6 L Mean Corpuscular Hemoglobin Concent 32.0 Red Cell Distribution Width 16.0 H Platelet Count 257 Mean Platelet Volume 10.7 H Neutrophils % 68.9 Lymphocytes % 24.1 Monocytes % 5.8 Eosinophils % 0.6 Basophils % 0.2 Nucleated Red Blood Cells % 0.0 Neutrophils # 9.2 H Lymphocytes # 3.2 H Monocytes # 0.8 Eosinophils # 0.1 Basophils # 0.0 Nucleated Red Blood Cells # 0.0 Sodium Level 139 Potassium Level 4.1 Chloride Level 107 Carbon Dioxide Level 27 Anion Gap 9 Blood Urea Nitrogen 10 Creatinine 0.87 Glucose Level 89 Calcium Level 8.2 L Magnesium Level 2.0 Medications Current Medications Ondansetron HCl (Zofran Inj) 4 mg Q6H PRN IV NAUSEA AND/OR VOMITING; Start 06/19 at 01:30 Miscellaneous Information 40 mg [id number] XX ; Start 07/03/16 at 09:00 Lorazepam (Ativan) 2 mg Q1H PRN IV seizure Last administered on 06/21/16 04:22 ; Admin Dose 2 MG; Start 06/19/16 at 09:00 Levetiracetam (Keppra) 500 mg BID PO Last administered on 06/21/16 22:19; Admin Dose 500 MG; Start 06/19/16 at 09:30 Famotidine (Pepcid Iv) 20 mg DAILY IV Last administered on 06/21/16 09:09; Admin Dose 20 MG; Start 06/19/16 at 13:30 Hydromorphone HCl (Dilaudid) 1 mg Q3H PRN IV PAIN LEVEL 7-10 Last administered on 06/21/16 22:20; Admin Dose 1 MG; Start 06/19/16 at 14:30 Prednisone (Prednisone) 20 mg DAILY PO Last administered on 06/21/16 09:09; Admin Dose 20 MG; Start 06/20/16 at 09:00 Diphenhydramine HCl 25 mg 25 mg Q3H PRN IV SLEEP Last administered on 06/21/16 22:21; Admin Dose 25 MG; Start 06/21/16 at 14:00 Ceftriaxone Sodium (Rocephin) 50 ml @ 100 mls/hr Q24H IVPB ; Start 06/22/16 at 09:00 Assessment/Plan Chief Complaint/Hosp Course PHYSICAL EXAMINATION GENERAL: He is not in acute distress, lying in bed. HEENT: Normocephalic, atraumatic head. NECK: No carotid bruits. No thyromegaly. LUNGS: Clear to auscultation bilaterally. CARDIAC: Normal cardiac rhythm and sounds. ABDOMEN: Soft, nontender. EXTREMITIES: No cyanosis, clubbing or edema. NEUROLOGIC: He is awake, alert, and oriented x2 with fluent speech. Cranial nerve examination shows intact visual carrera bilaterally. Pupils reactive from 3 to 2 mm bilaterally. Extraocular movements intact without nystagmus. Symmetrical face. Preserved facial strength and sensation. Tongue is in midline. Palate elevates symmetrically. Motor strength examination seems to be preserved in all extremities. He moves symmetrically at least 3+/5. There is some amount of give way because of spinal pain. Preserved sensation in the extremities. Deep tendon reflexes 2+ throughout. Downgoing toes bilaterally. Coordination preserved on tmxctd-[id number]-tkjxgh testing. No dysmetria or tremor. Gait was not assessed. He stated that he was ambulating with PT IMPRESSION: 1. New onset seizure. Etiology? MRI of the brain pending, EEG negative. Positive cocaine on drug screen, pt denies use. Continue keppra. 2. Status post seizure related fall with fractured T2, T3, T12 vertebral bodies. For better evaluation, I will obtain MRI of the thoracic spine. 3. I think the patient needs to have his pain controlled. 4. I think he needs to be seen by a neurosurgeon even though he may not need any surgery, but I am not familiar with management of spinal fractures and if he needs any braces for example. Encephalopathy? possible related to blunt head trauma. MRI pending. I'll ask Dr. Delarosa to follow Problems: SOLANGE MORALES MD Jun 21, 2016 23:54
[2016-06-22] MEDS: DIPHENHYDRAMINE 50 MG INJ IV PRN ×8 (02:43→23:21)
[2016-06-22] MEDS: HYDROmorphONE 1 MG/ML SYG IV PRN ×5 (02:44→14:33)
[2016-06-22 05:11] LABS: ADD SCAN DIFF NO
[2016-06-22 05:25] LABS: BASOPHIL # 0.1 10^3/ul (0.0-0.1); BASOPHILS % 0.4 % (0.0-2.0); EOSINOPHILS # 0.2 10^3/ul (0.0-0.5); EOSINOPHILS % 1.2 % (0.0-7.0); HEMATOCRIT 36.8 % (42.0-52.0); HEMOGLOBIN 11.9 g/dl (14.0-18.0); LYMPHOCYTES # 3.8 10^3/ul (0.8-2.9); LYMPHOCYTES % 31.4 % (15.0-51.0); MEAN CORPUSCULAR HEMOGLOBIN 27.6 pg (29.0-33.0); MEAN CORPUSCULAR HGB CONC 32.3 g/dl (32.0-37.0); MEAN CORPUSCULAR VOLUME 85.4 fl (82.0-101.0); MEAN PLATELET VOLUME 10.3 fl (7.4-10.4); MONOCYTE # 0.9 10^3/ul (0.3-0.9); MONOCYTES % 7.1 % (0.0-11.0); NEUTROPHIL # 7.2 10^3/ul (1.6-7.5); NEUTROPHILS % 59.4 % (39.0-77.0); PLATELET COUNT 254 10^3/UL (140-415); RED BLOOD COUNT 4.31 10^6/ul (4.70-6.10); RED CELL DISTRIBUTION WIDTH 16.1 % (11.5-14.5); WHITE BLOOD COUNT 12.1 10^3/ul (4.8-10.8)
[2016-06-22 05:37] LABS: POTASSIUM 3.7 mmol/L (3.5-5.1)
[2016-06-22 05:39] LABS: CREATININE 0.78 mg/dl (0.61-1.24)
[2016-06-22 05:40] LABS: CALCIUM 8.5 mg/dl (8.4-10.2)
[2016-06-22 07:00] VITALS: BP 130/89; RESP 18
[2016-06-22] MEDS: CEFTRIAXONE 1 GM/NS 50 ML IVPB SCH (08:36)
[2016-06-22] MEDS: FAMOTIDINE 20 MG INJ IV SCH (08:36)
[2016-06-22] MEDS: LEVETIRACETAM 500 MG TAB PO SCH ×2 (08:36→20:26)
[2016-06-22] MEDS: predniSONE 20 MG TAB PO SCH (08:36)
--- NOTE | 2016-06-22 12:06 | PN ---
Date/Time of Note Date/Time of Note DATE: 06/22/16 TIME: 12:02 Assessment/Plan VTE Prophylaxis VTE Prophylaxis Intervention: SCD's Lines/Catheters IV [facility]from [facility] Urinary Cath still in place: No Assessment/Plan Chief Complaint/Hosp Course ASSESSMENT AND PLAN: 1. New onset seizure disorder. Continue on seizure precautions. Continue Keppra. Pending electroencephalography. Brain CT scan negative for any acute findings. Neurology following. 2. Multilevel compression deformities through the thoracic spine, seen at T1-T4 , T7-T10, T12, and L1, with up to 30% height loss. Likely secondary to history of Crohn disease and steroid use, neurosurgery consulted 3. Marrow edema involving the upper T2 vertebral body appears consistent with acute fracture involvement. Continue pain control. Neurosurgery has been consulted 4. Crohn disease. The patient will be continued on prednisone and Humira. 5. Systemic inflammatory response syndrome with leukocytosis and sinus tachycardia. With negative culture, continue Rocephin 6. Hypokalemia. The patient's potassium will be repleted. 7. Deep venous thrombosis prophylaxis. Bilateral sequential compression devices. 8. Gastrointestinal prophylaxis. H2 receptor blockers. Plan: Waiting for neurosurgery evaluation will follow up neurosurgery recommendations. we will order physical therapy evaluation. Problems: Subjective 24 Hr Interval Summary Free Text/Dictation Continues to complain of having low and upper back pain No nausea vomiting diarrhea Denies of having any chest pain Exam/Review of Systems Vital Signs Vitals Vital Signs Date Time Temp Pulse Resp B/P Pulse Ox O2 Delivery O2 Flow Rate FiO2 06/22/16 07:00 98.7 86 18 130/89 98 06/19/16 00:30 Nasal Cannula 2.0 Intake and Output 06/21/16 06/21/16 06/22/16 15:00 23:00 07:00 Intake Total 900 ml 400 ml Output Total 500 ml Balance 900 ml -100 ml Exam General: The patient is well-developed, Not in acute distress. HEENT: Atraumatic, normocephalic. The pupils are equal and round . Neck: Supple with full range of motion. Chest: Normal expansion of the thorax during inspiration Lungs: Clear to auscultation bilaterally Heart: Normal S1-S2, Regular rhythm and rate. Abdomen: Soft , nontender, nondistended , bowel sounds are present. Extremities: Normal to inspection, no edema no cyanosis, motor and sensory are intact Neurologic: Normal mental status,The patient is awake, alert and oriented . Results Result Diagram: 06/22/165 06/22/165 Results 24 hrs Laboratory Tests Test 06/22/16 04:45 White Blood Count 12.1 H Red Blood Count 4.31 L Hemoglobin 11.9 L Hematocrit 36.8 L Mean Corpuscular Volume 85.4 Mean Corpuscular Hemoglobin 27.6 L Mean Corpuscular Hemoglobin Concent 32.3 Red Cell Distribution Width 16.1 H Platelet Count 254 Mean Platelet Volume 10.3 Neutrophils % 59.4 Lymphocytes % 31.4 Monocytes % 7.1 Eosinophils % 1.2 Basophils % 0.4 Nucleated Red Blood Cells % 0.0 Neutrophils # 7.2 Lymphocytes # 3.8 H Monocytes # 0.9 Eosinophils # 0.2 Basophils # 0.1 Nucleated Red Blood Cells # 0.0 Sodium Level 138 Potassium Level 3.7 Chloride Level 107 Carbon Dioxide Level 26 Anion Gap 9 Blood Urea Nitrogen 8 Creatinine 0.78 Glucose Level 75 Calcium Level 8.5 Magnesium Level 1.8 Medications Medications Current Medications Ondansetron HCl (Zofran Inj) 4 mg Q6H PRN IV NAUSEA AND/OR VOMITING; Start 06/19 at 01:30 Miscellaneous Information 40 mg [id number] XX ; Start 07/03/16 at 09:00 Lorazepam (Ativan) 2 mg Q1H PRN IV seizure Last administered on 06/21/16 04:22 ; Admin Dose 2 MG; Start 06/19/16 at 09:00 Levetiracetam (Keppra) 500 mg BID PO Last administered on 06/22/16 08:36; Admin Dose 500 MG; Start 06/19/16 at 09:30 Famotidine (Pepcid Iv) 20 mg DAILY IV Last administered on 06/22/16 08:36; Admin Dose 20 MG; Start 06/19/16 at 13:30 Hydromorphone HCl (Dilaudid) 1 mg Q3H PRN IV PAIN LEVEL 7-10 Last administered on 06/22/16 11:36; Admin Dose 1 MG; Start 06/19/16 at 14:30 Prednisone (Prednisone) 20 mg DAILY PO Last administered on 06/22/16 08:36; Admin Dose 20 MG; Start 06/20/16 at 09:00 Diphenhydramine HCl 25 mg 25 mg Q3H PRN IV SLEEP Last administered on 06/22/16 11:36; Admin Dose 25 MG; Start 06/21/16 at 14:00 Ceftriaxone Sodium (Rocephin) 50 ml @ 100 mls/hr Q24H IVPB Last administered on 06/22/16 08:36; Admin Dose 100 MLS/HR; Start 06/22/16 at 09:00 JAMIN SPEARS MD Jun 22, 2016 12:06
--- NOTE | 2016-06-22 12:17 | CONS ---
Date/Time of Note Date/Time of Note DATE: 06/22/16 TIME: 12:08 Consult Date/Type/Reason Admit Date/Time Jun 18, 2016 at 21:51 Initial Consult Date 06/22/16 Type of Consultation: neurology Reason for Consultation seizure evaluation, thoracic fractures Subjective complaints of pain throughout able to ambulate with PT with a walker today denies bowel or bladder or urinary incontinence, no saddle anesthesia Objective Vital Signs Date Time Temp Pulse Resp B/P Pulse Ox O2 Delivery O2 Flow Rate FiO2 06/22/16 07:00 98.7 86 18 130/89 98 06/19/16 00:30 Nasal Cannula 2.0 Intake and Output 06/21/16 06/21/16 06/22/16 15:00 23:00 07:00 Intake Total 900 ml 400 ml Output Total 500 ml Balance 900 ml -100 ml Exam awake and alert lying in bed, NAD oriented x3 no aphasia no neglect follows commands well CN: JULISSA, VFF, EOMI no nystagmus, palate upgoing uvula midline scm/trap intact tongue midline Motor: UE 5/5 LE poor effort can lift atleast anti-gravity 3+/5 Sensory intact no sensory level appreciated DTR 2+ throughout toes down Coordination intact Gait not assessed Results/Medications Result Diagram: 06/22/165 06/22/165 Results 24 hrs Laboratory Tests Test 06/22/16 04:45 White Blood Count 12.1 H Red Blood Count 4.31 L Hemoglobin 11.9 L Hematocrit 36.8 L Mean Corpuscular Volume 85.4 Mean Corpuscular Hemoglobin 27.6 L Mean Corpuscular Hemoglobin Concent 32.3 Red Cell Distribution Width 16.1 H Platelet Count 254 Mean Platelet Volume 10.3 Neutrophils % 59.4 Lymphocytes % 31.4 Monocytes % 7.1 Eosinophils % 1.2 Basophils % 0.4 Nucleated Red Blood Cells % 0.0 Neutrophils # 7.2 Lymphocytes # 3.8 H Monocytes # 0.9 Eosinophils # 0.2 Basophils # 0.1 Nucleated Red Blood Cells # 0.0 Sodium Level 138 Potassium Level 3.7 Chloride Level 107 Carbon Dioxide Level 26 Anion Gap 9 Blood Urea Nitrogen 8 Creatinine 0.78 Glucose Level 75 Calcium Level 8.5 Magnesium Level 1.8 Medications Current Medications Ondansetron HCl (Zofran Inj) 4 mg Q6H PRN IV NAUSEA AND/OR VOMITING; Start 06/19 at 01:30 Miscellaneous Information 40 mg [id number] XX ; Start 07/03/16 at 09:00 Lorazepam (Ativan) 2 mg Q1H PRN IV seizure Last administered on 06/21/16 04:22 ; Admin Dose 2 MG; Start 06/19/16 at 09:00 Levetiracetam (Keppra) 500 mg BID PO Last administered on 06/22/16 08:36; Admin Dose 500 MG; Start 06/19/16 at 09:30 Famotidine (Pepcid Iv) 20 mg DAILY IV Last administered on 06/22/16 08:36; Admin Dose 20 MG; Start 06/19/16 at 13:30 Hydromorphone HCl (Dilaudid) 1 mg Q3H PRN IV PAIN LEVEL 7-10 Last administered on 06/22/16 11:36; Admin Dose 1 MG; Start 06/19/16 at 14:30 Prednisone (Prednisone) 20 mg DAILY PO Last administered on 06/22/16 08:36; Admin Dose 20 MG; Start 06/20/16 at 09:00 Diphenhydramine HCl 25 mg 25 mg Q3H PRN IV SLEEP Last administered on 06/22/16 11:36; Admin Dose 25 MG; Start 06/21/16 at 14:00 Ceftriaxone Sodium (Rocephin) 50 ml @ 100 mls/hr Q24H IVPB Last administered on 06/22/16 08:36; Admin Dose 100 MLS/HR; Start 06/22/16 at 09:00 Assessment/Plan Chief Complaint/Hosp Course 40 year old male with history of Crohn's disease s/p partial left hemicolectomy on chronic pain medications found on the floor by family possible seizure activity. MRI Brain shows T2/FLAIR hyperintensity in periventricular subcortical matter small vessel ischemic changes minimal MRI Thoracic Spine shows multilevel compression deformities, through Thoracic Spine T1-T4, T7-T10, T12, and L1, with up to 30% height loss minimal edema at T3, T6, T7, T12, L1 subacute fracture? no cord compression Recommendations: -continue Keppra current dose -optimization of pain medications may benefit from pain management evaluation -neurosurgery to evaluate patient regarding compression fracture management -continue therapies Problems: DANK PRITCHETT MD Jun 22, 2016 12:17
--- NOTE | 2016-06-22 15:54 | CONS ---
DATE OF ADMISSION: 06/18/2016 DATE OF CONSULTATION: 06/22/2016 HISTORY OF PRESENT ILLNESS: This is a 40-year-old gentleman who was brought into emergency room at [facility] on 06/19/2016 with a witnessed generalized seizure. This gentleman elizabeth arently had another seizure in the emergency room. He is amnestic to the entire episode. The entir e history is taken from patient's medical records and in speaking to the gentleman who only remember s when he woke up and found the paramedics were in the room. He was taken to the emergency room aga in and that is where he had a second generalized seizure. Treated in the emergency room with Ativan and Dilantin was admitted to the hospital. Since hospitalization, he has had multiple CTs of the h ead, MRI of the head. Please refer to formal dictated report. Insofar as pain control issues he is found to have multiple level compression deformities throughout the T spine seen at T1 through T4, T 7 through T10, T12, L1 with up to 30% height loss. Marrow edema involving T2 vertebral body appears consistent with an acute fracture, minimum edema of T3, 6, 7, 12, and L1 may reflect subacute fract ures involvement and/or less likely modic endplate degenerative changes. Minimum retropulsion invol ving the T3, T12 vertebral bodies without central canal narrowing. At this time, he is complaining of pain in his lumbosacral spine with radiations to the bilateral lower extremities. States both si jacinto are equally intensity. He describes as electric shock-type of pain. It is according to him cont inue with peaks and troughs rating 10/10. States the pain is alleviated with combination of Benadr yl and Dilaudid. States he was on fentanyl and [place] up until approximately 1 week prior to this pr esentation given to him by [facility] and states he has been off that medication since that t lashell, off medications for 1 week prior to this hospitalization. He does not know the dosages he was taking at that time. Dose that he is receiving in the hospital and medications include: 1. Dilaudid 1 mg every 3 hours p.r.n. 2. Benadryl 25 mg IV every 3 hours p.r.n. MEDICATIONS: Please refer to reconciliation sheets. ALLERGIES: 1. ACETAMINOPHEN. 2. HYDROCODONE. 3. MORPHINE. MAJOR MEDICAL PROBLEMS IN THE PAST: Significant for the patient states he has Crohn's disease. He states he has had 70 surgeries, bilateral knee replacements, bilateral hip replacements. SOCIAL HISTORY: Deferred. The patient is somewhat agitated at this time. FAMILY HISTORY: Noncontributory. REVIEW OF SYSTEMS: A 12-point review of systems was negative other than which is in history of pres ent illness. PHYSICAL EXAMINATION: GENERAL: Shows a somewhat ashen-appearing 40-year-old gentleman. VITAL SIGNS: Blood pressure 130/89, pulse of 86 and regular, respirations of 18, temperature 98.7 d egrees, 98% saturation on room air. HEENT: He is normocephalic and atraumatic. Anicteric, acyanotic on examination. CHEST: Shows bilateral clear breath sounds throughout both lung carrera. COR: S1, S2, without S3, S4, murmur, gallop, rub. Normal rate, normal rhythm. ABDOMEN: Grossly benign. NEUROLOGIC: He is oriented x3. Cranial nerves II through XII are grossly intact. Motor and sensor y findings grossly within normal limits. He has full range of motion bilateral upper extremities fl exion, extension, internal or external rotation, bilateral lower extremity internal or external rota tion of bilateral lower extremities. Motor findings grossly within normal limits. Sensory findings grossly within normal limits. LABORATORY TESTS: White blood cell count of 12.1, hemoglobin 11.9, hematocrit 36.8, MCV of 85.4, pl atelet count 254,000. Chemistries: Serum sodium 138, potassium 3.7, chloride 107, bicarbonate 26, BUN of 8, creatinine 0.78, blood sugar 75. Tox screen positive for opioids at 4, 1, 17, 22, 15 hour s and positive for cocaine. Negative for barbs, amphetamines, benzodiazepines and cannabinoid. ASSESSMENT AND PLAN: This is a 40-year-old gentleman who had a witnessed generalized seizure, admit mahendra to the hospital appears to have multiple compression fractures and burst fracture of the thoraci c spine and lumbar spine. Please refer to dictated reports of his T spine, LS spine, CT scans and M RI of the thoracic spine. Please refer to dictated report of CT of the head also. An MRI of the br ain also that is dictated by Dr. Iftikhar Felix. 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 Somewhat unclear based upon interpretation. He also has some abnormalities on his MR study. Colleen rojas refer to the report which may be consistent with an underlying vasculitis or multiple sclerosis ac cording to report. He is somewhat anxious and difficult to calm him down at this time, insists on t he dosage of opioids he should be taking. I have tried to explain to him that we cannot give him hi gh doses of opioids on a 2 hour basis; however, I gave him options for long-acting pain medications with breakthrough pain medications. He is absolutely refuses that stating that the IV medications wo rk much better. I tried to explain to him that the combination of the oral long-acting and IV medic ations I am willing to give him but he once again refused that. In lieu of this, I understand that he does have new spinal fractures, he needs adequate pain control. We are waiting for neurosurgical consultation. In the interim time, I will treat him with 2 mg every 3 hours of Dilaudid, try and w ork with the gentleman. To note also he does have tolerance to opioids having been on fentanyl and [place]enport prior to this hospitalization. A great deal of reeducation and training support is in order a lso. Dictated By: TEGAN MASTERS MD, LP/GEOFF Conf#: [id number] DID#: [id number]
[2016-06-22] MEDS: HYDROmorphONE 2 MG/ML SYG IV PRN ×3 (17:32→23:21)
[2016-06-22 19:39] VITALS: BP 130/89; RESP 19
--- NOTE | 2016-06-22 21:07 | CONS ---
Date/Time of Note Date/Time of Note DATE: 06/22/16 TIME: 20:40 Assessment/Plan Assessment/Plan Problems: (1) Fracture of thoracic spine Comment: Patient with apparently severe Crohn's disease admitted s/p possible seizure. He has multiple areas of pain including spine (in many locations) and lower extremity joints. CT and MRI show multiple compression fractures, which IMO have minimal loss of vertebral body height. T2 possibly acute fracture and others older. Given lack of abnormal kyphotic deformity, no canal compromise, and little loss of vertebral body height there is no indication for neurosurgical intervention. IMO no indication for bracing or immobilization at this point either. Certainly the mechanism of injury is not c/w spine fracture except for his underlying morbidity of Crohn's disease, which is associated with osteoporosis and multiple spine fractures. Underlying disorder should be addressed, as there are pathological fractures. Qualifiers: Additional Assessment/Plan Recommendations: 1. No indication for neurosurgical intervention. Would not recommend bracing. 2. Attention to and treatment of underlying systemic Crohn's disease as appropriate, including GI and possibly rheumatology attention. 3. Pain control. Pain is generalized and not purely localized to possible acute spine fracture. He had previous pain narcotic use. 4. Seizure work-up as per neurology. 5. He should undergo repeat T-spine x-rays or CT in 3-4 weeks to assess for possible development of deformity. While very unlikely, this is not an impossibility. Consultation Date/Type/Reason Admit Date/Time Jun 18, 2016 at 21:51 Date of Consultation: Jun 22, 2016 Type of Consultation: Neurosurgery Reason for Consultation Thoracic spine fractures Hx of Present Illness This 40 year old man was admitted several days ago following possible seizure. He reports that he was at home and had sudden pain. Next thing he remembers is lying on floor of his room with paramedics standing over him. He reports that his mother heard loud sound of him falling and found him shaking uncontrollably. No previous seizure history. He reports PHMx very significant for Crohn's disease, s/p over 50 operations, mostly GI but also s/p replacement of both hips and both knees. He has longstanding severe back pain (top to bottom), hip pain, knee pain, joint pain. Known lumbar spine disease previously diagnosed. He was a patient at [place] up until a month ago but decided to change due to his perception that physicians there could not keep up with complexity of his disease. Now between doctors awaiting establishment of new relationships. Currently he reports severe midline back pain including lower and upper spine. Hip and knee pain bilaterally. Decreased mobility due to pain. No numbness or weakness in extremities. No loss of coordination. No incontinence of urine. Moves and walks very slowly due to pain. Constitutional: poor po Eyes: no complaints Respiratory: pain, pleuritic pain Cardiovascular: edema Gastrointestinal: decreased appetite, pain Genitourinary: no complaints Musculoskeletal: back pain, bone/joint pain, neck pain, restricted range of motion, swelling Skin: bruising, skin lesions Neurologic: headache, seizure, syncope, No focal-weakness Past Medical History Medical History: other (Crohn's disease) Past Surgical History Past Surgical Hx: bowel resection, other (50 abdominal operations, multiple orthopedic operations) Social History Smoking Status: Current every day smoker Exam/Review of Systems Vital Signs Vitals Vital Signs Date Time Temp Pulse Resp B/P Pulse Ox O2 Delivery O2 Flow Rate FiO2 06/22/16 19:39 98.2 77 19 130/89 100 06/19/16 00:30 Nasal Cannula 2.0 Intake and Output 06/21/16 06/21/16 06/22/16 15:00 23:00 07:00 Intake Total 900 ml 400 ml Output Total 500 ml Balance 900 ml -100 ml Exam Constitutional: alert, frail, oriented Head: atraumatic, normocephalic Eyes: EOMI, PERRL, No icteric ENMT: nl external ears & nose Neck: other (mildly decreased range of motion), supple, No nuchal rigidity Cardiovascular: edema, nl pulses Gastrointestinal: surgical scars Musculoskeletal: joint tenderness, other (tenderness to palpation upper and lower T-spine, L-spine; scars over both knees with post-op appearance), swelling Extremities: cyanosis, edema, tenderness Neurological: nl speech, No focal weakness (5/5 UE's proximal and distal; 5/5 bilat IP, quads, hams, EHL, plantar flexion; nl tone; intact senation LT/PP throughout without sensory level; toes downgoin bilateral; 0/2 knee jerks; 2/2 R ankle, unable to test L ankle due to IV) Skin: ecchymosis, other (tattoos) Results I reviewed CT/MRI T-spine: on CT, minimal compression fractures at multiple levels with minimal loss of vertebral body height. Most notable is T2. No deformity of alignment with preserved normal kyphosis. No significant compromise of canal. MRI shows loss of vertebral body height multiple levels. By official report edema at T2 suggesting possible acute fracture. Other levels subacute or older. By report, 30% loss of vertebral body height at multiple levels, but by my review minimal loss of height more in line with CT report. Lumbar spine shows degenerative changes. Result Diagram: 06/22/165 06/22/165 Results 24 hrs Laboratory Tests Test 06/22/16 04:45 White Blood Count 12.1 H Red Blood Count 4.31 L Hemoglobin 11.9 L Hematocrit 36.8 L Mean Corpuscular Volume 85.4 Mean Corpuscular Hemoglobin 27.6 L Mean Corpuscular Hemoglobin Concent 32.3 Red Cell Distribution Width 16.1 H Platelet Count 254 Mean Platelet Volume 10.3 Neutrophils % 59.4 Lymphocytes % 31.4 Monocytes % 7.1 Eosinophils % 1.2 Basophils % 0.4 Nucleated Red Blood Cells % 0.0 Neutrophils # 7.2 Lymphocytes # 3.8 H Monocytes # 0.9 Eosinophils # 0.2 Basophils # 0.1 Nucleated Red Blood Cells # 0.0 Sodium Level 138 Potassium Level 3.7 Chloride Level 107 Carbon Dioxide Level 26 Anion Gap 9 Blood Urea Nitrogen 8 Creatinine 0.78 Glucose Level 75 Calcium Level 8.5 Magnesium Level 1.8 Medications Medications Current Medications Ondansetron HCl (Zofran Inj) 4 mg Q6H PRN IV NAUSEA AND/OR VOMITING; Start 06/19 at 01:30 Miscellaneous Information 40 mg [id number] XX ; Start 07/03/16 at 09:00 Lorazepam (Ativan) 2 mg Q1H PRN IV seizure Last administered on 06/21/16 04:22 ; Admin Dose 2 MG; Start 06/19/16 at 09:00 Levetiracetam (Keppra) 500 mg BID PO Last administered on 06/22/16 20:26; Admin Dose 500 MG; Start 06/19/16 at 09:30 Prednisone (Prednisone) 20 mg DAILY PO Last administered on 06/22/16 08:36; Admin Dose 20 MG; Start 06/20/16 at 09:00 Diphenhydramine HCl 25 mg 25 mg Q3H PRN IV SLEEP Last administered on 06/22/16 20:26; Admin Dose 25 MG; Start 06/21/16 at 14:00 Ceftriaxone Sodium (Rocephin) 50 ml @ 100 mls/hr Q24H IVPB Last administered on 06/22/16 08:36; Admin Dose 100 MLS/HR; Start 06/22/16 at 09:00 Hydromorphone HCl (Dilaudid) 2 mg Q3H PRN IV PAIN LEVEL 7-10 Last administered on 06/22/16 20:26; Admin Dose 2 MG; Start 06/22/16 at 15:30 Famotidine (Pepcid) 20 mg DAILY PO ; Start 06/23/16 at 09:00 DELFINA MURPHY MD Jun 22, 2016 20:51
[2016-06-23] MEDS: DIPHENHYDRAMINE 50 MG INJ IV PRN ×8 (02:22→23:33)
[2016-06-23] MEDS: HYDROmorphONE 2 MG/ML SYG IV PRN ×8 (02:22→23:33)
[2016-06-23 04:57] LABS: ADD SCAN DIFF NO
[2016-06-23 05:14] LABS: POTASSIUM 3.6 mmol/L (3.5-5.1)
[2016-06-23 05:17] LABS: CREATININE 0.89 mg/dl (0.61-1.24)
[2016-06-23 05:18] LABS: CALCIUM 9.1 mg/dl (8.4-10.2)
[2016-06-23 05:29] LABS: BASOPHILS % 0.3 % (0.0-2.0); EOSINOPHILS # 0.2 10^3/ul (0.0-0.5); EOSINOPHILS % 1.8 % (0.0-7.0); HEMATOCRIT 38.2 % (42.0-52.0); LYMPHOCYTES # 3.7 10^3/ul (0.8-2.9); LYMPHOCYTES % 29.6 % (15.0-51.0); MEAN CORPUSCULAR HEMOGLOBIN 27.3 pg (29.0-33.0); MEAN CORPUSCULAR HGB CONC 31.4 g/dl (32.0-37.0); MEAN PLATELET VOLUME 10.3 fl (7.4-10.4); MONOCYTE # 0.9 10^3/ul (0.3-0.9); MONOCYTES % 7.1 % (0.0-11.0); NEUTROPHIL # 7.5 10^3/ul (1.6-7.5); NEUTROPHILS % 60.7 % (39.0-77.0); PLATELET COUNT 254 10^3/UL (140-415); RED BLOOD COUNT 4.39 10^6/ul (4.70-6.10); RED CELL DISTRIBUTION WIDTH 16.5 % (11.5-14.5); WHITE BLOOD COUNT 12.3 10^3/ul (4.8-10.8)
[2016-06-23 07:37] VITALS: BP 137/98; RESP 18
[2016-06-23] MEDS: LEVETIRACETAM 500 MG TAB PO SCH ×2 (08:25→20:33)
[2016-06-23] MEDS: CEFTRIAXONE 1 GM/NS 50 ML IVPB SCH (08:25)
[2016-06-23] MEDS: predniSONE 20 MG TAB PO SCH (08:25)
[2016-06-23] MEDS: FAMOTIDINE 20 MG TAB PO SCH (08:25)
--- NOTE | 2016-06-23 13:52 | PN ---
Date/Time of Note Date/Time of Note DATE: 06/23/16 TIME: 13:51 Assessment/Plan VTE Prophylaxis VTE Prophylaxis Intervention: SCD's Lines/Catheters IV [facility] Saline Lock Urinary Cath still in place: No Assessment/Plan Chief Complaint/Hosp Course ASSESSMENT AND PLAN: 1. New onset seizure disorder. Continue on seizure precautions. Continue Keppra. Pending electroencephalography. Brain CT scan negative for any acute findings. Neurology following. 2. Multilevel compression deformities through the thoracic spine, seen at T1-T4 , T7-T10, T12, and L1, with up to 30% height loss. Likely secondary to history of Crohn disease and steroid use, neurosurgery consulted No surgical intervention as per neurosurgery 3. Marrow edema involving the upper T2 vertebral body appears consistent with acute fracture involvement. Continue pain control. Neurosurgery has been consulted 4. Crohn disease. The patient will be continued on prednisone and Humira. 5. Systemic inflammatory response syndrome with leukocytosis and sinus tachycardia. With negative culture, continue Rocephin 6. Hypokalemia. The patient's potassium will be repleted. 7. Deep venous thrombosis prophylaxis. Bilateral sequential compression devices. 8. Gastrointestinal prophylaxis. H2 receptor blockers. Plan: Plan to discharge home today or tomorrow if cleared by neurology and neurosurgery Problems: Subjective 24 Hr Interval Summary Free Text/Dictation Patient is ambulating with minimal discomfort Denies of any chest pain or shortness of breath Tolerating oral intake Exam/Review of Systems Vital Signs Vitals Vital Signs Date Time Temp Pulse Resp B/P Pulse Ox O2 Delivery O2 Flow Rate FiO2 06/23/16 07:37 97.9 80 18 137/98 96 Intake and Output 06/22/16 06/22/16 06/23/16 15:00 23:00 07:00 Intake Total 1070 ml 1000 ml Output Total 1000 ml 980 ml Balance 70 ml 20 ml Exam General: The patient is well-developed, Not in acute distress. HEENT: Atraumatic, normocephalic. The pupils are equal and round . Neck: Supple with full range of motion. Chest: Normal expansion of the thorax during inspiration Lungs: Clear to auscultation bilaterally Heart: Normal S1-S2, Regular rhythm and rate. Abdomen: Soft , nontender, nondistended , bowel sounds are present. Extremities: Normal to inspection, no edema no cyanosis Neurologic: Normal mental status,The patient is awake, alert and oriented . Results Result Diagram: 06/23/16 0430 06/23/16 0430 Results 24 hrs Laboratory Tests Test 06/23/16 04:13 06/23/16 04:30 Magnesium Level 1.7 White Blood Count 12.3 H Red Blood Count 4.39 L Hemoglobin 12.0 L Hematocrit 38.2 L Mean Corpuscular Volume 87.0 Mean Corpuscular Hemoglobin 27.3 L Mean Corpuscular Hemoglobin Concent 31.4 L Red Cell Distribution Width 16.5 H Platelet Count 254 Mean Platelet Volume 10.3 Neutrophils % 60.7 Lymphocytes % 29.6 Monocytes % 7.1 Eosinophils % 1.8 Basophils % 0.3 Nucleated Red Blood Cells % 0.0 Neutrophils # 7.5 Lymphocytes # 3.7 H Monocytes # 0.9 Eosinophils # 0.2 Basophils # 0.0 Nucleated Red Blood Cells # 0.0 Sodium Level 141 Potassium Level 3.6 Chloride Level 100 Carbon Dioxide Level 30 Anion Gap 15 Blood Urea Nitrogen 15 Creatinine 0.89 Glucose Level 96 Calcium Level 9.1 Medications Medications Current Medications Ondansetron HCl (Zofran Inj) 4 mg Q6H PRN IV NAUSEA AND/OR VOMITING; Start 06/19 at 01:30 Lorazepam (Ativan) 2 mg Q1H PRN IV seizure Last administered on 06/21/16 04:22 ; Admin Dose 2 MG; Start 06/19/16 at 09:00 Levetiracetam (Keppra) 500 mg BID PO Last administered on 06/23/16 08:25; Admin Dose 500 MG; Start 06/19/16 at 09:30 Prednisone (Prednisone) 20 mg DAILY PO Last administered on 06/23/16 08:25; Admin Dose 20 MG; Start 06/20/16 at 09:00 Diphenhydramine HCl 25 mg 25 mg Q3H PRN IV SLEEP Last administered on 06/23/16 11:26; Admin Dose 25 MG; Start 06/21/16 at 14:00 Ceftriaxone Sodium (Rocephin) 50 ml @ 100 mls/hr Q24H IVPB Last administered on 06/23/16 08:25; Admin Dose 100 MLS/HR; Start 06/22/16 at 09:00 Hydromorphone HCl (Dilaudid) 2 mg Q3H PRN IV PAIN LEVEL 7-10 Last administered on 06/23/16 11:26; Admin Dose 2 MG; Start 06/22/16 at 15:30 Famotidine (Pepcid) 20 mg DAILY PO Last administered on 06/23/16 08:25; Admin Dose 20 MG; Start 06/23/16 at 09:00 Patient Own Medication 1 ea Q14D SC ; Start 06/23/16 at 20:00 JAMIN SPEARS MD Jun 23, 2016 13:52
[2016-06-23 19:51] VITALS: BP 136/95; RESP 20
[2016-06-23] MEDS ORDERED: NON-FORMULARY/PATIENT OWN MED (Adalimumab (Humira) 40 MG) XX SCH (20:00)
[2016-06-23] MEDS ORDERED: HUMIRA 40 MG/0.8 ML SC SCH (20:00)
[2016-06-24] MEDS: DIPHENHYDRAMINE 50 MG INJ IV PRN ×7 (04:08→22:13)
[2016-06-24] MEDS: HYDROmorphONE 2 MG/ML SYG IV PRN ×7 (04:08→22:13)
[2016-06-24 05:40] LABS: ADD SCAN DIFF NO
[2016-06-24 05:50] LABS: BASOPHIL # 0.1 10^3/ul (0.0-0.1); BASOPHILS % 0.4 % (0.0-2.0); EOSINOPHILS # 0.2 10^3/ul (0.0-0.5); EOSINOPHILS % 1.8 % (0.0-7.0); HEMATOCRIT 39.5 % (42.0-52.0); HEMOGLOBIN 12.4 g/dl (14.0-18.0); LYMPHOCYTES # 3.9 10^3/ul (0.8-2.9); LYMPHOCYTES % 29.6 % (15.0-51.0); MEAN CORPUSCULAR HEMOGLOBIN 27.6 pg (29.0-33.0); MEAN CORPUSCULAR HGB CONC 31.4 g/dl (32.0-37.0); MEAN PLATELET VOLUME 10.6 fl (7.4-10.4); MONOCYTE # 0.9 10^3/ul (0.3-0.9); MONOCYTES % 6.5 % (0.0-11.0); NEUTROPHILS % 61.2 % (39.0-77.0); PLATELET COUNT 274 10^3/UL (140-415); RED BLOOD COUNT 4.49 10^6/ul (4.70-6.10); RED CELL DISTRIBUTION WIDTH 16.8 % (11.5-14.5)
[2016-06-24 06:50] LABS: CREATININE 0.84 mg/dl (0.61-1.24); POTASSIUM 3.7 mmol/L (3.5-5.1)
[2016-06-24 08:18] VITALS: BP 134/91; RESP 18
[2016-06-24] MEDS: CEFTRIAXONE 1 GM/NS 50 ML IVPB SCH (09:57)
[2016-06-24] MEDS: FAMOTIDINE 20 MG TAB PO SCH (09:57)
[2016-06-24] MEDS: LEVETIRACETAM 500 MG TAB PO SCH ×2 (09:57→21:12)
[2016-06-24] MEDS: predniSONE 20 MG TAB PO SCH (10:20)
--- NOTE | 2016-06-24 15:30 | PDOCDIS ---
Discharge Instructions CONDITION Patient Condition: Stable HOME CARE INSTRUCTIONS: Special Diet: Regular ACTIVITY: Activity Restrictions: Slowly Increase Activity Rest between Activity Avoid heavy lifting Avoid Heavy Housework FOLLOW UP/APPOINTMENTS Appointments Follow up with neurology as outpatient Follow up with neurosurgery as outpatient Follow up with primary care physician as outpatient Follow up with corrugator operator helper outpatient JAMIN SPEARS MD Jun 24, 2016 15:30
[2016-06-24] MEDS ORDERED: FENT1PAT7 TD (15:33)
[2016-06-24] MEDS ORDERED: OXYC-279 PO (15:33)
[2016-06-24] MEDS ORDERED: LEVE-5 PO (15:33)
[2016-06-24] MEDS ORDERED: HYDR2TAB15 PO (15:33)
[2016-06-24] MEDS ORDERED: FAMO20TA18 PO (15:33)
--- NOTE | 2016-06-24 16:43 | DS ---
DATE OF ADMISSION: 06/18/2016 DATE OF DISCHARGE: 06/24/2016 CONSULTANTS: 1. Dr. Maurice Dangelo 2. Dr. Manohar Kessler 3. Dr. Benton PROCEDURES: EEG: Essentially normal study. IMAGIN. Thoracic spine showed multilevel compression deformity through the thoracic spine seen at T1-T4, T7-T10, T12-L1 with up to 30% height loss. 2. Marrow edema involving the upper T12 vertebral body appears consistent with acute fracture invol vement. Minimal edema at T3, T6, T7, T12, and L1 may reflect subacute fracture involvement. Minima l retropulsion involving the upper T3 and T12 vertebral bodies without central canal narrowing. 3. MRI of the brain showed scattered T2 flair hyperintense foci in the periventricular and subcorti dyan white matter, likely reflecting minimal small vessel ischemic changes or migraine associated joanne nges. 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 No abnormal mass , acute infarct, or intracranial bleed. DIAGNOSES: 1. New onset of seizure disorder. The patient was seen and evaluated by neurology and has been prabha alena on Keppra. EEG was normal. 2. Multilevel compression deformities throughout the thoracic spine, likely secondary to history of constant steroid use. Neurosurgery was consulted. No surgical intervention as per neurosurgery. 3. Marrow edema involving the upper T12 vertebral body. Continue pain control. Neurosurgery was c onsulted. 4. Crohn disease. Continue prednisone, Humira. 5. Systemic inflammatory response syndrome with leukocytosis and tachycardia, resolved. 6. Hypokalemia, repleted. MEDICATIONS: 1. Keppra 500 mg. 2. Pepcid 20 mg. 3. Prednisone 5 mg. 4. Fentanyl patch 25 mcg. 5. Percocet 5/325. 6. Dilaudid 1 mg. ALLERGIES: 1. TYLENOL 2. HYDROCODONE. 3. MORPHINE. 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 The patient also had several episodes of mechanical fall a nd has abdominal pain and back pain. The next thing he knew, he was surrounded by family and EMS. The patient reportedly had generalized body tremor consistent with what appears to be seizure. He p resented to the ER and had 1 episode of seizure, and he has been complaining of back pain. WBC was found to be 32,000, bicarbonate 15. CT abdomen and pelvis showed thickening of transverse c olon, likely secondary to Crohn disease. CT lumbar showed moderate spinal stenosis. Neurology and neurosurgery were consulted. EEG was obtained which was a normal study. MRI of the thoracic spine showed multilevel compression deformities throughout the thoracic spine. Marrow edema involving T2 vertebral body appears consistent with acute fracture involvement. Neuros urgery evaluated the patient, and as per his recommendation, no indication for neurosurgical interve ntion and would now recommend bracing and attention to treatment of underlying systemic Crohn diseas e as appropriate. The patient will need to be seen by GI and brake assembler as outpatient. The pat ient has been placed on proper pain medication via Dilaudid and Percocet. Pain management physician was consulted. The patient has not had any seizure during this course of hospitalization. Today, the patient's vitals, labs showed WBC 13.0, hemoglobin 12.4, hematocrit 39.4, platelets 174. The le ukocytosis is likely secondary to patient's chronic steroid use. Sodium 139, potassium 3.7, chlorid e 103, bicarbonate 27, BUN 15, creatinine 0.84, glucose 74, calcium 9.0, magnesium 1.7. CONDITION AT TIME OF DISCHARGE: Stable. FOLLOWUP: 1. The patient will be set up to follow up with primary care physician as outpatient. 2. Follow up with neurology. 3. Follow up with neurosurgery. 4. Follow up with rheumatology. 5. Follow up with web press operator helper offset. Dictated By: JAMIN CUNHA/GEOFF Conf#: [id number] DID#: [id number]
[2016-06-24 19:59] VITALS: BP 130/80; RESP 20
[2016-06-25] MEDS: DIPHENHYDRAMINE 50 MG INJ IV PRN ×6 (01:15→16:17)
[2016-06-25] MEDS: HYDROmorphONE 2 MG/ML SYG IV PRN ×7 (01:15→16:17)
[2016-06-25 07:00] VITALS: BP 123/80; RESP 20
[2016-06-25] MEDS: predniSONE 20 MG TAB PO SCH (09:37)
[2016-06-25] MEDS: CEFTRIAXONE 1 GM/NS 50 ML IVPB SCH (09:37)
[2016-06-25] MEDS: FAMOTIDINE 20 MG TAB PO SCH (09:38)
[2016-06-25] MEDS: LEVETIRACETAM 500 MG TAB PO SCH (09:38)
--- NOTE | 2016-06-25 13:10 | PN ---
Date/Time of Note Date/Time of Note DATE: 06/25/16 TIME: 13:09 Assessment/Plan VTE Prophylaxis VTE Prophylaxis Intervention: SCD's Lines/Catheters IV C[facility]ter Type (from [facility] Saline Lock Urinary Cath still in place: No Assessment/Plan Chief Complaint/Hosp Course ASSESSMENT AND PLAN: 1. New onset seizure disorder. Continue on seizure precautions. Continue Keppra. Pending electroencephalography. Brain CT scan negative for any acute findings. Neurology following. 2. Multilevel compression deformities through the thoracic spine, seen at T1-T4 , T7-T10, T12, and L1, with up to 30% height loss. Likely secondary to history of Crohn disease and steroid use, neurosurgery consulted No surgical intervention as per neurosurgery 3. Marrow edema involving the upper T2 vertebral body appears consistent with acute fracture involvement. Continue pain control. Neurosurgery has been consulted 4. Crohn disease. The patient will be continued on prednisone and Humira. 5. Systemic inflammatory response syndrome with leukocytosis and sinus tachycardia. With negative culture, continue Rocephin 6. Hypokalemia. The patient's potassium will be repleted. 7. Deep venous thrombosis prophylaxis. Bilateral sequential compression devices. 8. Gastrointestinal prophylaxis. H2 receptor blockers. Discharge home versus acute rehab as per patient choice Problems: Subjective 24 Hr Interval Summary Free Text/Dictation Patient continues to complain of having low back pain No nausea vomiting diarrhea Minimal assist with ambulation Exam/Review of Systems Vital Signs Vitals Vital Signs Date Time Temp Pulse Resp B/P Pulse Ox O2 Delivery O2 Flow Rate FiO2 06/25/16 07:00 97.9 78 20 123/80 96 Intake and Output 06/24/16 06/24/16 06/25/16 15:00 23:00 07:00 Intake Total 740 ml Output Total 800 ml Balance -60 ml Exam General: The patient is well-developed, Not in acute distress. HEENT: Atraumatic, normocephalic. The pupils are equal and round . Neck: Supple with full range of motion. Chest: Normal expansion of the thorax during inspiration Lungs: Clear to auscultation bilaterally Heart: Normal S1-S2, Regular rhythm and rate. Abdomen: Soft , nontender, nondistended , bowel sounds are present. Extremities: Normal to inspection, no edema no cyanosis Neurologic: Normal mental status,The patient is awake, alert and oriented . Results Result Diagram: 06/24/16 0420 06/24/160 Medications Medications Current Medications Ondansetron HCl (Zofran Inj) 4 mg Q6H PRN IV NAUSEA AND/OR VOMITING; Start 06/19 at 01:30 Lorazepam (Ativan) 2 mg Q1H PRN IV seizure Last administered on 06/21/16 04:22 ; Admin Dose 2 MG; Start 06/19/16 at 09:00 Levetiracetam (Keppra) 500 mg BID PO Last administered on 06/25/16 09:38; Admin Dose 500 MG; Start 06/19/16 at 09:30 Prednisone (Prednisone) 20 mg DAILY PO Last administered on 06/25/16 09:37; Admin Dose 20 MG; Start 06/20/16 at 09:00 Diphenhydramine HCl 25 mg 25 mg Q3H PRN IV SLEEP Last administered on 06/25/16 10:16; Admin Dose 25 MG; Start 06/21/16 at 14:00 Ceftriaxone Sodium (Rocephin) 50 ml @ 100 mls/hr Q24H IVPB Last administered on 06/25/16 09:37; Admin Dose 100 MLS/HR; Start 06/22/16 at 09:00 Hydromorphone HCl (Dilaudid) 2 mg Q3H PRN IV PAIN LEVEL 7-10 Last administered on 06/25/16 11:59; Admin Dose 2 MG; Start 06/22/16 at 15:30 Famotidine (Pepcid) 20 mg DAILY PO Last administered on 06/25/16 09:38; Admin Dose 20 MG; Start 06/23/16 at 09:00 Patient Own Medication 1 ea Q14D SC Last administered on 06/23/16 20:03; Admin Dose 1 EA; Start 06/23/16 at 20:00 Fentanyl (Duragesic 25 Mcg/Hr Patch) 1 patch Q3D TRANSDERM ; Start 06/24/16 at 16 :30 JAMIN SPEARS MD Jun 25, 2016 13:10
[2016-06-25] MEDS ORDERED: HYDROmorphONE 2 MG TAB PO PRN (18:30)
--- NOTE | 2016-06-25 19:46 | PN ---
DATE: 06/24/2016 SUBJECTIVE: On 06/24/2016, I visited the patient. He is still complaining of back discomfort, whic h he now states he is old pain that he has had. He denies radiation into bilateral lower extremitie s. The character of his pain is sharp, not gnawing. He has associated with it. It is allevi ated with current Dilaudid IV push and he is refusing to adjust his pain medications. OBJECTIVE: VITAL SIGNS: Blood pressure 123/80, pulse is 78 and regular, respirations 20, temperature 97.9 degr ees, 96% saturation on room air. GENERAL: He is not moaning, groaning, grimacing. NEUROLOGICAL: He is oriented x3. Cranial nerves II-XII are grossly intact. Motor and sensory find ings are grossly within normal limits. LABORATORY DATA: White blood cell count 13, hemoglobin 12.4, hematocrit of 39.5, MCV of 88, platele t count 274,000. Chemistries: Serum sodium 139, potassium 3.7, chloride 103, bicarbonate 27, BUN o f 15, creatinine 0.84. Blood sugar of 74. 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 I have spoken to Dr. Langley, who will be discharging him sometime wit wyn the next day. I will start transiting him over to oral medications at this time. Dictated By: TEGAN MASTERS MD, LP/GEOFF Conf#: [id number] DID#: [id number]
== END 2016-06-25 17:45 | disposition home health service (06) | DRG 552 ==
LOC: E/R 18:54 → MS4 21:51 → MS1 23:56
PROVIDERS: ADMIT Internal Medicine; ATTEND Internal Medicine
DX: S22.021A Stable burst fracture of second thoracic vertebra, initial encounter for closed fracture (principal); E87.2 Acidosis; R65.10 Systemic inflammatory response syndrome (SIRS) of non-infectious origin without acute organ dysfunction; R56.9 Unspecified convulsions; K50.90 Crohn's disease, unspecified, without complications; M48.56XA Collapsed vertebra, not elsewhere classified, lumbar region, initial encounter for fracture; W19.XXXA Unspecified fall, initial encounter; E87.6 Hypokalemia; F17.210 Nicotine dependence, cigarettes, uncomplicated; Z96.643 Presence of artificial hip joint, bilateral; Z96.653 Presence of artificial knee joint, bilateral; S22.019A Unspecified fracture of first thoracic vertebra, initial encounter for closed fracture; S22.039A Unspecified fracture of third thoracic vertebra, initial encounter for closed fracture; S22.049A Unspecified fracture of fourth thoracic vertebra, initial encounter for closed fracture; S22.069A Unspecified fracture of T7-T8 vertebra, initial encounter for closed fracture; S22.079A Unspecified fracture of T9-T10 vertebra, initial encounter for closed fracture; S22.089A Unspecified fracture of T11-T12 vertebra, initial encounter for closed fracture; Z79.52 Long term (current) use of systemic steroids
CPT/HCPCS: 36415; 70450; 70553; 71010; 72128; 72131; 72146; 74176; 80048; 80053; 80202; 80307; 81001; 81003; 82550; 82553; 83605; 83690; 83735; 84484; 85025; 85651; 87040; 87086; 93005; 95819; 96372; 96374; 96375; 96376; J0692; J0696; J1165; J1170; J1200; J2060; J2405; J2543; J2930; J3370; J3480; J7030; J7042; J7050; J7512